=== PATIENT | female | born 1995 | race Caucasian/White ===

== ENCOUNTER 2023-03-13 06:22 | Observation (INO) | payer BC, SELFPAY ==
[2023-03-13 06:36] VITALS: BP 129/76; PULSE 93
--- NOTE | 2023-03-13 07:14 | US_ITS ---
[address] [address] Patient Name: REGINA DOWELL MRN: [id number] date: 1995 Sex: F Assigned Patient Location: [facility] Current Patient Location: [facility] Accession/Order Number: [id number] Exam Date: 03/13/2023 07:15 Report Date: 03/13/2023 08:24 At the request of: BRYAN GUAMAN Procedure: US OB placenta EXAMINATION: US OB placenta, US OB cervical length HISTORY: bleeding ; vaginal bleeding COMPARISON: No relevant comparison available. FINDINGS: PLACENTA: Posterior with lower margin 0.6 cm from internal os. 8 mm hypoechoic area within placenta suspected to represent a venous lainez. CERVIX LENGTH: 4.8 cm in length, closed. HEART RATE: 162 bpm AMNIOTIC FLUID: Subjectively normal. OTHER: None. GA: 26 weeks 5 days SLOANE: 06/14/2023 IMPRESSION: 1. Single live intrauterine . 2. Posterior placenta with marginal previa. No evidence of abruption or subchorionic hematoma. 3. Closed cervix 4.8 cm in length. Electronically authenticated by: GARRETT ROWAN Date: 03/13/2023 08:24
--- NOTE | 2023-03-13 07:14 | US_ITS ---
[address] [address] Patient Name: REGINA DOWELL MRN: [id number] date: 1995 Sex: F Assigned Patient Location: [facility] Current Patient Location: [facility] Accession/Order Number: [id number] Exam Date: 03/13/2023 07:15 Report Date: 03/13/2023 08:24 At the request of: BRYAN GUAMAN Procedure: US OB cervical length EXAMINATION: US OB placenta, US OB cervical length HISTORY: bleeding ; vaginal bleeding COMPARISON: No relevant comparison available. FINDINGS: PLACENTA: Posterior with lower margin 0.6 cm from internal os. 8 mm hypoechoic area within placenta suspected to represent a venous lainez. CERVIX LENGTH: 4.8 cm in length, closed. HEART RATE: 162 bpm AMNIOTIC FLUID: Subjectively normal. OTHER: None. GA: 26 weeks 5 days SLOANE: 06/14/2023 IMPRESSION: 1. Single live intrauterine . 2. Posterior placenta with marginal previa. No evidence of abruption or subchorionic hematoma. 3. Closed cervix 4.8 cm in length. Electronically authenticated by: GARRETT ROWAN Date: 03/13/2023 08:24
--- NOTE | 2023-03-13 07:23 | W.PC.ACHO ---
Registration Status: ADM ALEC Primary Language: Preferred Language:
[2023-03-13 07:44] LABS: Bilirubin Urine NEGATIVE (NEGATIVE); Blood Urine MODERATE (NEGATIVE); Clarity Urine CLEAR (CLEAR); Color Urine LT. YELLOW (YELLOW); Glucose Urine UA NEGATIVE (NEGATIVE); Ketones Urine NEGATIVE (NEGATIVE); Leukocyte Esterase Urine NEGATIVE (NEGATIVE); Nitrite Urine NEGATIVE (NEGATIVE); Protein Urine NEGATIVE (NEG/TRACE); Urobilinogen Urine 0.2 EU/dL (0.2-1.0)
[2023-03-13 07:46] LABS: Urine Microscopic Indicated YES
[2023-03-13 08:01] LABS: Bacteria Urine NONE SEEN #/HPF (NONE SEEN); Cast Seen? NONE SEEN #/LPF (NONE SEEN); Crystals Seen? None Seen #/HPF (None Seen); Mucus Urine TRACE (NONE SEEN); Squamous Epithelial Cell Urine FEW #/LPF (NONE/RARE); Urine Culture Indicated NO; WBC Urine NONE SEEN #/HPF (NONE SEEN)
[2023-03-13] MEDS: 0.9 % SODIUM CHLORIDE 1,000 ML 125 ML IV (09:17)
[2023-03-13 12:47] VITALS: BP 117/62; PULSE 81
== END 2023-03-13 13:31 | disposition home or self-care (01) ==
PROVIDERS: Admitting Provider Obstetrics & Gynecology; PCP Family Medicine; Visit Provider Obstetrics & Gynecology
DX: O46.92 Antepartum hemorrhage, unspecified, second trimester (principal); Z3A.26 26 weeks gestation of pregnancy
CPT/HCPCS: 59025; 76815; 76817; 81003; 81015; G0378; G0379

== ENCOUNTER 2023-05-17 07:09 | Inpatient (IN) | payer BC, SELFPAY ==
[2023-05-17] VITALS (47 sets, daily range): BP systolic 108–168; BP diastolic 57–99; PULSE 68–101; RESP 16; TEMP 36.4–36.8
[2023-05-17 07:43] LABS: Amnisure POSITIVE (NEGATIVE)
[2023-05-17 07:50] LABS: Bilirubin Urine NEGATIVE (NEGATIVE); Blood Urine SMALL (NEGATIVE); Clarity Urine CLEAR (CLEAR); Color Urine LT. YELLOW (YELLOW); Glucose Urine UA NEGATIVE (NEGATIVE); Ketones Urine NEGATIVE (NEGATIVE); Leukocyte Esterase Urine NEGATIVE (NEGATIVE); Nitrite Urine NEGATIVE (NEGATIVE); Protein Urine NEGATIVE (NEG/TRACE); Specific Gravity Urine 1.015 (1.005-1.025); Urobilinogen Urine 0.2 EU/dL (0.2-1.0); pH Urine 7.5 (5.0-9.0)
[2023-05-17 07:51] LABS: Urine Microscopic Indicated YES
[2023-05-17 07:56] LABS: Bacteria Urine TRACE #/HPF (NONE SEEN); Cast Seen? NONE SEEN #/LPF (NONE SEEN); Crystals Seen? None Seen #/HPF (None Seen); Mucus Urine NONE SEEN (NONE SEEN); RBC Urine 0-2 #/HPF (0-2); Squamous Epithelial Cell Urine RARE #/LPF (NONE/RARE); Urine Culture Indicated YES
[2023-05-17] MEDS: AMPICILLIN SODIUM 2,000 MG in 0.9 % SODIUM CHLORIDE 100 ML 200 MG IV (08:23)
[2023-05-17] MEDS: 0.9 % SODIUM CHLORIDE 1,000 ML 125 ML IV ×2 (08:27→10:51)
[2023-05-17 09:24] LABS: Hematocrit 34.7 % (36.0-48.0); Hemoglobin 11.8 g/dL (12.0-16.0); Mean Corpuscular Hemoglobin 28.8 pg (26.7-34.0); Mean Corpuscular Volume 84.6 fL (81.0-99.0); Mean Platelet Volume 10.7 fL (9.5-13.5); Platelet Count 247 10^3/uL (150-450); Red Cell Distribution Width 13.2 % (11.0-15.0); White Blood Count 19.6 10^3/uL (4.0-11.0)
[2023-05-17] MEDS: ROPIVACAINE HCL/PF 400 MG/200 ML PREMIX 6 MG EPIDURAL (10:49)
[2023-05-17] MEDS: FENTANYL CITRATE/PF 100 MCG/2 ML VIAL EPIDURAL (10:50)
[2023-05-17] MEDS: AMPICILLIN SODIUM 1,000 MG in 0.9 % SODIUM CHLORIDE 50 ML 100 MG IV (11:27)
[2023-05-17] MEDS: OXYTOCIN/0.9 % SODIUM CHLORIDE 10 UNITS/500 ML PLAST..BAG 6 UNIT IV (11:33)
[2023-05-17] MEDS: LABETALOL HCL 200 MG TABLET 300 MG PO (13:41)
--- NOTE | 2023-05-17 14:11 | P.OBHP_ITS ---
OB - H&P: HPI History of Present Illness Chief complaint: RUPTURED MEMBRANES : 2 Para: 1 Gestational age based on last menstrual period: 36.0 History of Present Dating criteria: LMP confirmed by 1st trimester US care: none Ultrasounds: normal 1st trimester US and normal mid trimester US complications: other (chronic hypertension ) complications comment: chronic HTN, Narrative: chronic hypertension Labs Blood type: O (+) positive Rubella: immune RPR/VDLR: nonreactive GBS status: unknown HBsAG: negative Review of Systems ROS Psychiatric Reports: anxiety PFSH PFS Medical History (Updated 05/17/23 @ 14:22 by LEONCIO LOZADA APRN, [place]) Surgical History (Updated 05/17/23 @ 07:38 by Willa Garcia, [place]) Social History (Updated 05/17/23 @ 13:52 by Willa Garcia, [place]) Within the past year, how often did you have a drink containing alcohol: never Score interpretation: A score less than 3 is consistent with normal alcohol consumption. Smoking status: Never smoker Non-prescribed substance use: denies use Meds Home Medications and Allergies Home Medications Medication Instructions Recorded Confirmed Type aspirin 81 mg capsule 81 mg PO DAILY 05/17/23 05/17/23 History diphenhydramine HCl 25 mg capsule 25 mg PO Q8H PRN sleep 05/17/23 05/17/23 History (Benadryl) docusate sodium 100 mg capsule 100 mg PO DAILY 05/17/23 05/17/23 History (Colace) labetalol 100 mg tablet 300 mg PO TID 05/17/23 05/17/23 History labetalol 200 mg tablet 200 mg PO .amhs 05/17/23 05/17/23 History [id number] 1 mg tab PO DAILY 05/17/23 History tablet Allergies Allergy/AdvReac Type Severity Reaction Status Date / Time acetaminophen [From Vicodin] Allergy Intermediate Vomiting Verified 03/13/23 09:28 hydrocodone [From Vicodin] Allergy Intermediate Vomiting Verified 03/13/23 09:28 ibuprofen AdvReac Mild gi upset Verified 05/17/23 07:40 Exam Constitutional Vital Signs, click to edit/add: Last Vital Signs Temp 98.3 F 05/17/23 13:17 Pulse 76 05/17/23 14:01 BP 133/83 05/17/23 14:01 Documenting provider has reviewed patient's vital signs: yes Common normals: no apparent distress General appearance: cooperative and comfortable Orientation/consciousness: Yes awake, Yes oriented to person, Yes oriented to place and Yes oriented to time Neck & C-Spine Common normals: full ROM Lymph Lymphatic: no lymphadenopathy noted Respiratory Common normals: normal respiratory effort and no retractions Effort & inspection: able to speak in complete sentences Auscultation: clear to auscultation bilaterally Cardio Common normals: regular rate, regular rhythm and no murmurs Rate: regular rate Rhythm: regular rhythm GI Common normals: non-tender Inspection: normal to inspection Auscultation: normoactive bowel sounds Palpation: soft Back & Pelvis Common normals: no CVA tenderness Thoracic spine/upper back: normal to inspection Extremity Common normals: normal to inspection and full ROM Neuro Common normals: oriented x3 Sensorium/orientation: awake, alert, oriented to person, oriented to place and oriented to time Psych Attitude: calm Activity/motor behavior: appropriate eye contact Results Labs Labs: Short CBC 05/17/23 Range/Units 08:10 WBC 19.6 H (4.0-11.0) 10^3/uL Hgb 11.8 L (12.0-16.0) g/dL Hct 34.7 L (36.0-48.0) % Plt Count 247 (150-450) 10^3/uL Urine 05/17/23 Range/Units 07:15 Urine Color Lt. yellow (YELLOW) Urine Clarity Clear (CLEAR) Urine pH 7.5 (5.0-9.0) Ur Specific [place] 1.015 (1.005-1.025) Urine Protein Negative (NEG/TRACE) mg/dL Urine Glucose (UA) Negative (NEGATIVE) mg/dL OB - A/P Assessment and Plan (1) Term :
--- NOTE | 2023-05-17 14:28 | PM.EN ---
Event Note Event Note: to patients room. She is rating her pain a 0. Epidural working well. SVE complete, thick meconium noted, without particulates. Will remove najera and prepare for delivery. Dr Aguirre notified
[2023-05-17] MEDS: CARBOPROST TROMETHAMINE 250 MCG/ML 1 ML VIAL IM (15:09)
--- NOTE | 2023-05-17 15:30 | P.OBPRC_ITS ---
Procedure Procedure: events: Labor < 37 Weeks, Labor Augmentation and Meconium S tained Fluid Induction method: none Delivery augmentation: pitocin Delivery monitor: external FHT and external uterine Route of delivery: Episiotomy Description: none Laceration description: labial (Small left labial repair) Delivery repair: Vicryl Estimated blood loss (mL): 450 Anesthesia type: Epidural Disposition: no change Infant Delivery date: 05/17/23 Gender: male presentation: vertex Placental delivery description: Spontaneous cord description: 3 Vessels heart rate - 1 minute: 100 bpm or Greater respiratory effort - 1 minute: Spontaneous/Strong Cry muscle tone - 1 minute: Minimal Flexion/Extension reflex response - 1 minute: Minimal Response color - 1 minute: Bluish Hands or Feet total score - 1 minute: 7 heart rate - 5 minute: 100 bpm or Greater respiratory effort - 5 minute: Spontaneous/Strong Cry muscle tone - 5 minute: Active Movement reflex response - 5 minute: Prompt Response color - 5 minute: Bluish Hands or Feet total score - 5 minute: 9
[2023-05-17] MEDS: IBUPROFEN 400 MG TABLET 800 MG PO (16:16)
[2023-05-17 16:25] LABS: Amphetamine Screen Urine NEGATIVE (NEGATIVE); Barbiturates Screen Urine NEGATIVE (NEGATIVE); Benzodiazepines Screen Urine NEGATIVE (NEGATIVE); Buprenorphine Screen Urine NEGATIVE (NEGATIVE); Cannabinoid Screen Urine NEGATIVE (NEGATIVE); Cocaine Screen Urine NEGATIVE (NEGATIVE); Methadone Screen Urine NEGATIVE (NEGATIVE); Methamphetamines Screen Urine NEGATIVE (NEGATIVE); Opiate Screen Urine NEGATIVE (NEGATIVE); Oxycodone Screen Urine NEGATIVE (NEGATIVE); Phencyclidine Screen Urine NEGATIVE (NEGATIVE); Tricyclic Antidepressant Urine NEGATIVE (NEGATIVE)
--- NOTE | 2023-05-17 21:39 | PC.NURSE ---
Reported BP's to Savi GAGE Orders recieved to skip this dose of labetalol.
[2023-05-18] VITALS (8 sets, daily range): BP systolic 121–148; BP diastolic 60–85; PULSE 82–111; RESP 16; TEMP 35.9–36.7
[2023-05-18] MEDS: IBUPROFEN 400 MG TABLET 800 MG PO ×3 (00:58→18:49)
[2023-05-18 06:24] LABS: Basophils Absolute Auto 0.1 10^3/uL (0.0-0.1); Basophils Percent Auto 0.2 % (0.2-2.0); Eosinophils Percent Auto 0.1 % (0.9-7.0); Hematocrit 29.6 % (36.0-48.0); Hemoglobin 9.8 g/dL (12.0-16.0); Immature Granulocytes Abs Auto 0.19 10^3/uL (0.00-0.03); Immature Granulocytes Pct Auto 0.9 % (0.0-0.5); Lymphocytes Absolute Auto 2.5 10^3/uL (1.2-3.8); Lymphocytes Percent Auto 11.5 % (20.5-60.0); Mean Corpuscular HGB Conc 33.1 g/dL (29.9-35.2); Mean Corpuscular Volume 87.6 fL (81.0-99.0); Monocytes Absolute Auto 1.2 10^3/uL (0.3-0.8); Monocytes Percent Auto 5.4 % (1.7-12.0); Neutrophils Absolute Auto 17.7 10^3/uL (1.4-6.5); Neutrophils Percent Auto 81.9 % (43.0-75.0); Platelet Count 221 10^3/uL (150-450); Red Blood Count 3.38 10^6/uL (4.20-5.40); Red Cell Distribution Width 13.3 % (11.0-15.0); White Blood Count 21.6 10^3/uL (4.0-11.0)
--- NOTE | 2023-05-18 07:22 | PC.NURSE ---
Report given to Kaitlyn Rojas RN.
[2023-05-18] MEDS: DOCUSATE SODIUM 100 MG CAPSULE PO (09:54)
[2023-05-18] MEDS: ACETAMINOPHEN 325 MG TABLET 650 MG PO ×2 (11:16→15:23)
--- NOTE | 2023-05-18 11:45 | P.OBPN_ITS ---
OB - PN: Subj Subjective Patient comments: no complaints, tolerating diet and flatus present status: doing well [place] feeding status: exclusively Exam Constitutional Vital Signs, click to edit/add: Last Vital Signs Temp 97.1 F L 05/18/23 01:10 Pulse 82 05/18/23 06:28 Resp 16 05/18/23 01:10 BP 121/60 05/18/23 06:28 Documenting provider has reviewed patient's vital signs: yes Common normals: no apparent distress, average body habitus, oriented x3 and no limitations General appearance: cooperative, comfortable, well kempt and well developed Orientation/consciousness: Yes awake, Yes oriented to person, Yes oriented to place, Yes oriented to time and Yes confused HENMT Common normals: normocephalic and head/scalp atraumatic Eye Common normals: PERRL Pupil: accommodation reflex normal Neck & C-Spine Common normals: full ROM Respiratory Common normals: normal respiratory effort Cardio Common normals: regular rate and regular rhythm GI Common normals: Normal to inspection, nondistended, normoactive bowel sounds present Common normals: no CVA tenderness Extremity Common normals: normal to inspection, full ROM and no calf tenderness Neuro Common normals: oriented x3, CN's II-XII intact bilaterally, moves all extremities, no focal motor deficits and no sensory deficits noted Psych Common normals: mental status grossly normal, thought process normal, cooperative, affect normal and speech normal Results Labs Labs: Short CBC 05/18/23 Range/Units 06:11 WBC 21.6 H (4.0-11.0) 10^3/uL Hgb 9.8 L (12.0-16.0) g/dL Hct 29.6 L (36.0-48.0) % Plt Count 221 (150-450) 10^3/uL OB - PN: A/P Assessment and Plan (1) Term : Assessment and Plan: post day one, chronic hypertension, will change med to nifedipine 30 mg extended release one PO QD Plan routine post care Plan - Vaginal Delivery day: 1 Plan: routine care Comment: breast feeding, milk not yet in Time Spent with Patient Time: Total time spent is greater than 50% in coordination of care (as documented) at patient's floor/unit and/or counseling patient: Total time spent with greater than 50% in coordination of care (as documented) at patient's floor/unit and/or counseling patient: less than 15 minutes
--- NOTE | 2023-05-18 14:46 | PC.NURSE ---
plan of care reivewed. verbalizes understanding. reports rubra wnl. denies pain or needs
--- NOTE | 2023-05-18 18:14 | PC.NURSE ---
pt appears comfortable inbed with warm pack. tylenol given as ordered and requested for comfort
[2023-05-18] MEDS: NIFEdipine 30 MG TAB.ER.24 PO (23:21)
== END 2023-05-18 23:40 | disposition home or self-care (01) | DRG 806 ==
PROVIDERS: Admitting Provider Midwife; PCP Family Medicine; Visit Provider Obstetrics & Gynecology
DX: O42.913 Preterm premature rupture of membranes, unspecified as to length of time between rupture and onset of labor, third trimester (principal); O10.92 Unspecified pre-existing hypertension complicating childbirth; Z37.0 Single live birth; Z3A.36 36 weeks gestation of pregnancy; O77.0 Labor and delivery complicated by meconium in amniotic fluid; O70.0 First degree perineal laceration during delivery; Z79.899 Other long term (current) drug therapy
CPT/HCPCS: 36415; 51702; 59050; 80307; 81001; 84112; 85025; 85027; 86850; 86900; 86901; 87086; 88307; 96365; 96372; 96375; 96376

== ENCOUNTER 2023-11-09 17:43 | Observation (INO) | payer BC, SELFPAY ==
[2023-11-09] VITALS (9 sets, daily range): BP systolic 128–157; BP diastolic 78–92; PULSE 122–138; RESP 15–29; TEMP 37.1–37.4; O2SAT 96–100; BMI 30.5; BMI 29.7
--- NOTE | 2023-11-09 18:03 | ED.GENADUL1 ---
HPI - General Adult General Chief complaint: Upper Respiratory Infection Stated complaint: female issues Time Seen by Provider: 11/09/23 17:53 Source: patient and family Mode of arrival: walk-in Limitations: no limitations Related Data Home Medications Medication Instructions Recorded Confirmed labetalol 100 mg tablet 200 mg PO Q12H 11/09/23 11/09/23 Allergies Allergy/AdvReac Type Severity Reaction Status Date / Time hydrocodone [From Vicodin] Allergy Intermediate Vomiting Verified 03/13/23 09:28 [facility] Medical History (Updated 11/09/23 @ 20:38 by ERIK Crowder) Anxiety ?F41.9 - Anxiety disorder, unspecified (ICD-10) Chronic hypertension ?I10 - Essential (primary) hypertension (ICD-10) Surgical History (Updated 05/17/23 @ 07:38 by Willa Garcia RN) H/O left knee surgery ?Z98.890 - Other specified postprocedural states (ICD-10) Social History (Updated 05/17/23 @ 13:52 by Willa Garcia RN) Within the past year, how often did you have a drink containing alcohol: never Score interpretation: A score less than 3 is consistent with normal alcohol consumption. Smoking status: Never smoker Non-prescribed substance use: denies use Exam Constitutional Vital Signs, click to edit/add: Last Vital Signs Temp 99.3 F 11/09/23 17:52 Pulse 136 H 11/09/23 19:31 Resp 29 H 11/09/23 19:31 BP 131/90 11/09/23 19:31 Pulse Ox 99 11/09/23 19:31 O2 Del Method Room Air 11/09/23 17:52 Course Vital Signs Vital signs: Vital Signs Temperature 99.3 F 11/09/23 17:52 Pulse Rate 134 H 11/09/23 17:52 Respiratory Rate 18 11/09/23 17:52 Blood Pressure 157/83 H 11/09/23 17:52 Pulse Oximetry 98 11/09/23 17:52 Oxygen Delivery Method Room Air 11/09/23 17:52 Temperature 99.3 F 11/09/23 17:52 Pulse Rate 136 H 11/09/23 19:31 Respiratory Rate 29 H 11/09/23 19:31 Blood Pressure 131/90 11/09/23 19:31 Pulse Oximetry 99 11/09/23 19:31 Oxygen Delivery Method Room Air 11/09/23 17:52 Medical Decision Making MDM Narrative Medical decision making narrative: Patient was treated with 2 L of IV fluids which initially improved her heart rate, but she began vomiting again. She was given IV Zofran, IV Compazine. Her quantitative hCG level is less than 1. She is not . She was offered Toradol for comfort, she declined this and did not want any pain medications in the ER. Her lab studies show leukocytosis, although the patient has a history of leukocytosis and today's level is actually improved from the last year. She has 3% bandemia, mild hyponatremia. Urine specimen shows urinary tract infection. Lactic acid is normal, procalcitonin is elevated. CT scanner is down, patient with no severe pain in the ER, renal ultrasound shows no evidence of hydronephrosis to suggest the patient has a septic kidney stone at this time. There was a small kidney stone noted in the left kidney, urinary bladder is thickened consistent with UTI and pyelonephritis. Patient was given IV Rocephin, blood cultures are pending. Patient was reevaluated by attending physician prior to admission. Case discussed with hospitalist service and the patient is admitted for pyelonephritis, sepsis, tachycardia. Blood pressure and oxygen saturation remained stable in the ER. She is negative for COVID and influenza. Medical Records Medical records reviewed: Yes I reviewed the patient's medical records Lab Data Lab results reviewed: Yes I reviewed the patient's lab results Labs: Lab Results 11/09/23 11/09/23 11/09/23 Range/Units 18:00 18:05 18:10 WBC 14.7 H (4.0-11.0) 10^3/uL RBC 4.32 (4.20-5.40) 10^6/uL Hgb 11.6 L (12.0-16.0) g/dL Hct 35.3 L (36.0-48.0) % MCV 81.7 (81.0-99.0) fL MCH 26.9 (26.7-34.0) pg MCHC 32.9 (29.9-35.2) g/dL RDW 14.0 (11.0-15.0) % Plt Count 199 (150-450) 10^3/uL MPV 9.7 (9.5-13.5) fL Seg Neuts % (Manual) 81.0 Band Neutrophils % 3.0 (0-5) % Lymphocytes % (Manual) 5.0 L (20.5-60.0) % Monocytes % (Manual) 11.0 (1.7-12.0) % Eosinophils % (Manual) 0.0 L (0.9-7.0) % Basophils % (Manual) 0.0 L (0.2-2.0) % Neutrophils # (Manual) 11.90 H (1.4-6.5) 10^3/uL Band Neutrophils # 0.4 H (0.0-0.3) 10^3/uL Lymphocytes # (Manual) 0.73 L (1.20-3.80) 10^3/uL Monocytes # (Manual) 1.61 H (0.30-0.80) 10^3/uL Eosinophils # (Manual) 0.00 (0.00-0.70) 10^3/uL Basophils # (Manual) 0.00 (0.00-0.10) 10^3/uL Anisocytosis 1+ Microcytosis 1+ Sodium 131 L (136-145) mmol/L Potassium 3.6 (3.5-5.1) mmol/L Chloride 95 L (98-107) mmol/L Carbon Dioxide 19.5 L (21.0-32.0) mmol/L Anion Gap 20.1 BUN 19.0 H (7.0-18.0) mg/dL Creatinine 1.24 H (0.55-1.02) mg/dL Est GFR ( Amer) >60 (>=60) Est GFR (Non-Af Amer) 52 L (>=60) BUN/Creatinine Ratio 15.3 Glucose 107 H (74-106) mg/dL Lactate (0.4-2.0) mmol/L Calcium 9.1 (8.5-10.1) mg/dL Total Bilirubin 0.9 (0.2-1.0) mg/dL AST 27 (15-37) U/L ALT 31 (14-59) U/L Alkaline Phosphatase 104 (46-116) U/L Total Protein 8.1 (6.4-8.2) g/dL Albumin 3.5 (3.4-5.0) g/dL Globulin 4.6 g/dL Albumin/Globulin Ratio 0.8 Procalcitonin (0.00-0.50) ng/mL HCG, Quant <1 mIU/mL Urine Color Lt. yellow (YELLOW) Urine Clarity Clear (CLEAR) Urine pH 5.5 (5.0-9.0) Ur Specific [place] 1.025 (1.005-1.025) Urine Protein 100 A (NEG/TRACE) mg/dL Urine Glucose (UA) Negative (NEGATIVE) mg/dL Urine Ketones >=80 A (NEGATIVE) mg/dL Urine Occult Blood Large A (NEGATIVE) Urine Nitrite Negative (NEGATIVE) Urine Bilirubin Negative (NEGATIVE) Urine Urobilinogen 1.0 (0.2-1.0) EU/dL Ur Leukocyte Esterase Moderate A (NEGATIVE) Urine RBC 20-50 A (0-2) #/HPF Urine WBC 10-20 A (NONE SEEN) #/HPF Ur Squamous Epith Cells Few A (NONE/RARE) #/LPF Urine Crystals None seen (None Seen) #/HPF Urine Bacteria Small A (NONE SEEN) #/HPF Urine Casts None seen (NONE SEEN) #/LPF Urine Mucus None seen (NONE SEEN) Ur Culture Indicated? Yes Influenza Type A Ag Negative Influenza Type B Ag Negative SARS-CoV-2 Ag (CV2AG) Negative (NEGATIVE) 11/09/23 11/09/23 Range/Units 18:52 18:59 WBC (4.0-11.0) 10^3/uL RBC (4.20-5.40) 10^6/uL Hgb (12.0-16.0) g/dL Hct (36.0-48.0) % MCV (81.0-99.0) fL MCH (26.7-34.0) pg MCHC (29.9-35.2) g/dL RDW (11.0-15.0) % Plt Count (150-450) 10^3/uL MPV (9.5-13.5) fL Seg Neuts % (Manual) Band Neutrophils % (0-5) % Lymphocytes % (Manual) (20.5-60.0) % Monocytes % (Manual) (1.7-12.0) % Eosinophils % (Manual) (0.9-7.0) % Basophils % (Manual) (0.2-2.0) % Neutrophils # (Manual) (1.4-6.5) 10^3/uL Band Neutrophils # (0.0-0.3) 10^3/uL Lymphocytes # (Manual) (1.20-3.80) 10^3/uL Monocytes # (Manual) (0.30-0.80) 10^3/uL Eosinophils # (Manual) (0.00-0.70) 10^3/uL Basophils # (Manual) (0.00-0.10) 10^3/uL Anisocytosis Microcytosis Sodium (136-145) mmol/L Potassium (3.5-5.1) mmol/L Chloride (98-107) mmol/L Carbon Dioxide (21.0-32.0) mmol/L Anion Gap BUN (7.0-18.0) mg/dL Creatinine (0.55-1.02) mg/dL Est GFR ( Amer) (>=60) Est GFR (Non-Af Amer) (>=60) BUN/Creatinine Ratio Glucose (74-106) mg/dL Lactate 0.9 (0.4-2.0) mmol/L Calcium (8.5-10.1) mg/dL Total Bilirubin (0.2-1.0) mg/dL AST (15-37) U/L ALT (14-59) U/L Alkaline Phosphatase (46-116) U/L Total Protein (6.4-8.2) g/dL Albumin (3.4-5.0) g/dL Globulin g/dL Albumin/Globulin Ratio Procalcitonin 2.61 H (0.00-0.50) ng/mL HCG, Quant mIU/mL Urine Color (YELLOW) Urine Clarity (CLEAR) Urine pH (5.0-9.0) Ur Specific [place] (1.005-1.025) Urine Protein (NEG/TRACE) mg/dL Urine Glucose (UA) (NEGATIVE) mg/dL Urine Ketones (NEGATIVE) mg/dL Urine Occult Blood (NEGATIVE) Urine Nitrite (NEGATIVE) Urine Bilirubin (NEGATIVE) Urine Urobilinogen (0.2-1.0) EU/dL Ur Leukocyte Esterase (NEGATIVE) Urine RBC (0-2) #/HPF Urine WBC (NONE SEEN) #/HPF Ur Squamous Epith Cells (NONE/RARE) #/LPF Urine Crystals (None Seen) #/HPF Urine Bacteria (NONE SEEN) #/HPF Urine Casts (NONE SEEN) #/LPF Urine Mucus (NONE SEEN) Ur Culture Indicated? Influenza Type A Ag Influenza Type B Ag SARS-CoV-2 Ag (CV2AG) (NEGATIVE) Imaging Data US renal: Attestation: I have reviewed the pertinent imaging results. Discharge Plan Discharge Chief Complaint: Upper Respiratory Infection Clinical Impression: Pyelonephritis, Tachycardia, Sepsis, Nausea and vomiting Patient Disposition: Admitted as Observation Time of Disposition Decision: 20:38
[2023-11-09] MEDS: 0.9 % SODIUM CHLORIDE 1,000 ML 1000 ML IV ×2 (18:05→19:06)
[2023-11-09 18:20] LABS: Hematocrit 35.3 % (36.0-48.0); Hemoglobin 11.6 g/dL (12.0-16.0); Mean Corpuscular HGB Conc 32.9 g/dL (29.9-35.2); Mean Corpuscular Hemoglobin 26.9 pg (26.7-34.0); Mean Corpuscular Volume 81.7 fL (81.0-99.0); Mean Platelet Volume 9.7 fL (9.5-13.5); Platelet Count 199 10^3/uL (150-450); Red Blood Count 4.32 10^6/uL (4.20-5.40); White Blood Count 14.7 10^3/uL (4.0-11.0)
[2023-11-09 18:21] LABS: Bilirubin Urine NEGATIVE (NEGATIVE); Blood Urine LARGE (NEGATIVE); Clarity Urine CLEAR (CLEAR); Color Urine LT. YELLOW (YELLOW); Glucose Urine UA NEGATIVE (NEGATIVE); Ketones Urine >=80 mg/dL (NEGATIVE); Leukocyte Esterase Urine MODERATE (NEGATIVE); Nitrite Urine NEGATIVE (NEGATIVE); Protein Urine 100 mg/dL (NEG/TRACE); Specific Gravity Urine 1.025 (1.005-1.025); pH Urine 5.5 (5.0-9.0)
[2023-11-09 18:25] LABS: Urine Microscopic Indicated YES
[2023-11-09 18:32] LABS: Influenza Virus A Antigen Negative; Influenza Virus B Antigen Negative; Internal Control Within Normal Limits; SARS-CoV-2 Ag NEGATIVE (NEGATIVE)
[2023-11-09 18:35] LABS: Bacteria Urine SMALL #/HPF (NONE SEEN); Cast Seen? NONE SEEN #/LPF (NONE SEEN); Crystals Seen? None Seen #/HPF (None Seen); Mucus Urine NONE SEEN (NONE SEEN); RBC Urine 20-50 #/HPF (0-2); Squamous Epithelial Cell Urine FEW #/LPF (NONE/RARE); Urine Culture Indicated YES
[2023-11-09 18:41] LABS: Alanine Aminotransferase 31 U/L (14-59); Albumin Globulin Ratio 0.8; Albumin Level 3.5 g/dL (3.4-5.0); Alkaline Phosphatase 104 U/L (46-116); Anion Gap 20.1; Aspartate Amino Transferase 27 U/L (15-37); BUN Creatinine Ratio 15.3; Bilirubin Total 0.9 mg/dL (0.2-1.0); Calcium 9.1 mg/dL (8.5-10.1); Carbon Dioxide 19.5 mmol/L (21.0-32.0); Chloride 95 mmol/L (98-107); Estimated GFR (African America >60 (>=60); Estimated GFR (Non-African Ame 52 (>=60); Globulin 4.6 g/dL; Glucose 107 mg/dL (74-106); Potassium 3.6 mmol/L (3.5-5.1); Sodium 131 mmol/L (136-145); Total Protein 8.1 g/dL (6.4-8.2)
[2023-11-09 18:47] LABS: Anisocytosis 1+; Band Neutrophils Absolute 0.4 10^3/uL (0.0-0.3); HCG Quantitative <1 mIU/mL; Lymphocytes Absolute Manual 0.73 10^3/uL (1.20-3.80); Microcytosis 1+; Monocytes Absolute Manual 1.61 10^3/uL (0.30-0.80)
--- NOTE | 2023-11-09 18:54 | US_ITS ---
[address] [address] Patient Name: REGINA DOWELL MRN: [id number] date: 1995 Sex: F Assigned Patient Location: ER Current Patient Location: [facility] Accession/Order Number: [id number] Exam Date: 11/09/2023 19:50 Report Date: 11/09/2023 20:47 At the request of: ZAC ESTEVEZ Procedure: US renal BI EXAMINATION: US renal BI TECHNIQUE: Ultrasound of the kidneys was performed Grayscale and color flow Doppler imaging. HISTORY: UTI, flank pain. COMPARISON: None. FINDINGS: Kidneys: Couple small echogenic foci are seen of the midpole left kidney measuring up to 5 mm. No renal mass lesion. No hydronephrosis of either kidney. The right kidney measures 13.9 x 5.6 x 3.9cm. The left kidney measures 11.6 x 5.0 x 6.0cm. Urinary bladder: The urinary bladder is unremarkable. Other: No additional abnormality. US/US renal BI IMPRESSION: No evidence for hydronephrosis. Small probable nonobstructing stones of left kidney. Electronically authenticated by: AMILCAR ROBERTS Date: 11/09/2023 20:47
[2023-11-09] MEDS: CEFTRIAXONE 2,000 MG in 0.9 % SODIUM CHLORIDE 100 ML 200 MG IV (19:06)
[2023-11-09] MEDS: ONDANSETRON PF 4 MG/2 ML VIAL IV (19:21)
[2023-11-09 19:23] LABS: Lactate/Lactic Acid 0.9 mmol/L (0.4-2.0)
[2023-11-09 20:14] LABS: PROCALCITONIN 2.61 ng/mL (0.00-0.50)
[2023-11-09] MEDS: PROCHLORPERAZINE 10 MG/2 ML VIAL 5 MG IV (20:26)
--- NOTE | 2023-11-09 20:42 | ECG_ITS ---
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
[2023-11-09] MEDS: 0.9 % SODIUM CHLORIDE 1,000 ML 126 ML IV (22:29)
[2023-11-10] VITALS (11 sets, daily range): BP systolic 132–144; BP diastolic 78; PULSE 97–135; RESP 16–18; TEMP 36.7–39.5; O2SAT 97–98
[2023-11-10] MEDS: PROCHLORPERAZINE 10 MG/2 ML VIAL IV (03:04)
[2023-11-10] MEDS: ACETAMINOPHEN 325 MG TABLET 650 MG PO (03:09)
--- NOTE | 2023-11-10 03:13 | PC.NURSE ---
pt complaints of shivers and nausea. Vitals obtained, HR elevated and temp of 103.1. Compazine and tylenol given per physician's order.
[2023-11-10 04:58] LABS: Basophils Percent Auto 0.2 % (0.2-2.0); Hematocrit 29.3 % (36.0-48.0); Hemoglobin 9.5 g/dL (12.0-16.0); Immature Granulocytes Abs Auto 0.07 10^3/uL (0.00-0.03); Immature Granulocytes Pct Auto 0.6 % (0.0-0.5); Lymphocytes Percent Auto 8.6 % (20.5-60.0); Mean Corpuscular HGB Conc 32.4 g/dL (29.9-35.2); Mean Corpuscular Hemoglobin 26.7 pg (26.7-34.0); Mean Corpuscular Volume 82.3 fL (81.0-99.0); Mean Platelet Volume 10.1 fL (9.5-13.5); Monocytes Absolute Auto 1.6 10^3/uL (0.3-0.8); Monocytes Percent Auto 14.6 % (1.7-12.0); Neutrophils Absolute Auto 8.5 10^3/uL (1.4-6.5); Platelet Count 165 10^3/uL (150-450); Red Blood Count 3.56 10^6/uL (4.20-5.40); Red Cell Distribution Width 14.2 % (11.0-15.0); White Blood Count 11.2 10^3/uL (4.0-11.0)
[2023-11-10 05:19] LABS: Alanine Aminotransferase 21 U/L (14-59); Albumin Globulin Ratio 0.7; Albumin Level 2.7 g/dL (3.4-5.0); Alkaline Phosphatase 84 U/L (46-116); Anion Gap 16.5; Aspartate Amino Transferase 22 U/L (15-37); BUN Creatinine Ratio 13.6; Bilirubin Total 0.5 mg/dL (0.2-1.0); Calcium 8.4 mg/dL (8.5-10.1); Carbon Dioxide 16.6 mmol/L (21.0-32.0); Chloride 102 mmol/L (98-107); Estimated GFR (African America >60 (>=60); Estimated GFR (Non-African Ame >60 (>=60); Globulin 3.9 g/dL; Glucose 112 mg/dL (74-106); Potassium 3.1 mmol/L (3.5-5.1); Sodium 132 mmol/L (136-145); Total Protein 6.6 g/dL (6.4-8.2)
[2023-11-10] MEDS: 0.9 % SODIUM CHLORIDE 1,000 ML 126 ML IV (06:22)
--- NOTE | 2023-11-10 09:12 | P.HP_ITS ---
<Statement entered by Iggy Anguiano MD - 11/10/23 12:59> This documentation has been reviewed and approved. Patient is evaluated at the bedside, patient at that point in time is much improved. On my exam she had no CVA tenderness sinus tach that may have changed throughout the day. Agree with input and findings provided by nurse practitioner. HPI H&P: HPI History of Present Illness Chief complaint: SEPSIS,TACHYCARDIA, PYELONEPHRITIS Narrative: 11/10/23 [id number] This is a 28-year-old female patient with a relatively benign past medical history except for hypertension and she is 6 months ; who presents to the ED complaining of a 5-day course of illness with back pain, fevers and chills, weakness, and nausea and vomiting. The patient denies dysuria or frequency but did note a slight foul odor to her urine. As her weakness and vomiting persisted making it difficult for her to care for her infant, she presented to the ED for further evaluation. Workup in the ED revealed tachycardia (134), fever (99.3, 103.1), leukocytosis (14.7), mild hyponatremia (131), NAGI (BUN 19, CR 1.24, GFR 52), and elevated procalcitonin (2.61). A UA was positive for UTI. Renal US was obtained and which revealed small probable nonobstructing stones of the left kidney, no hydronephrosis or other acute abnormality. Lactic acid was within normal limits, and influenza and COVID swabs were negative. The patient was admitted to the hospitalist service last night for sepsis, pyelonephritis, and NAGI. At the time of my exam this morning the patient is walking back from the bathroom. She reports feeling significantly improved and is asking to go home so that she may continue nursing her baby. She denies dizziness, chest pain, or N/V. Her tachycardia has nearly resolved. Her NAGI is resolved on a.m. labs as is mild hyponatremia. She has mild hypokalemia that will be repleted today. She also has mild anemia, likely d/t hemodilution after large volume IVF administration last night. Despite sepsis and pyelonephritis, the patient has improved remarkably quickly, much faster than expected, and is stable for discharge home. Discharge: The pt is being discharged home in stable condition. She is prescribed Bactrim DS x 7 days for pyelonephritis, which is safe for a mother. She should follow up with her PCP in 3-5 days. She has been advised to return to the ED if she has recurrent fevers or nausea and vomiting. Opioid HPI Opioid Management Most Recent Opioid Data: Last Pain Assessment 11/10/23 09:38 Last MAR Pain Assessment 11/10/23 05:36 Last ORT Total Score 1 11/09/23 21:57 Last ORT Risk Category Low Risk 11/09/23 21:57 Ur Phencyclidine Scrn Negative (NEGATIVE) 05/17/23 07:15 Review of Systems ROS Status of ROS 10 or more systems reviewed and unremark able except as noted in history and below [facility] Medical History (Updated 11/10/23 @ 09:39 by Dee Dee Weiss NP) Term ?Z34.90 - Encounter for supervision of normal , unspecified, unspecified trimester (ICD-10) Kidney stone ?N20.0 - Calculus of kidney (ICD-10) Anxiety ?F41.9 - Anxiety disorder, unspecified (ICD-10) Chronic hypertension ?I10 - Essential (primary) hypertension (ICD-10) Surgical History (Updated 05/17/23 @ 07:38 by Willa Garcia RN) H/O left knee surgery ?Z98.890 - Other specified postprocedural states (ICD-10) Family History (Updated 11/09/23 @ 21:58 by Cony Guy RN) Mother Family history of diabetes mellitus Family history of hypertension Other Family history of COPD (chronic obstructive pulmonary disease) Family history of myocardial infarction Social History (Updated 11/09/23 @ 21:59 by Cony Guy RN) Within the past year, how often did you have a drink containing alcohol: never Score interpretation: A score less than 3 is consistent with normal alcohol consumption. Smoking status: Never smoker Non-prescribed substance use: denies use Highest level of school completed/degree received: some college, no degree Feel stressed/tense/nervous/anxious/difficulty sleeping: rather much Meds Home Medications and Allergies Home Medications Medication Instructions Recorded Confirmed Type diphenhydramine HCl 25 mg capsule 25 mg PO .nightly PRN sleep 11/09/23 11/09/23 History (Benadryl) labetalol 100 mg tablet 200 mg PO Q12H 11/09/23 11/09/23 History cefdinir 300 mg capsule 300 mg PO BID 7 days #14 caps 11/10/23 Rx Allergies Allergy/AdvReac Type Severity Reaction Status Date / Time hydrocodone [From Vicodin] Allergy Intermediate Vomiting Verified 03/13/23 09:28 Exam Constitutional Vital Signs, click to edit/add: Last Vital Signs Temp 98.0 F 11/10/23 07:54 Pulse 106 H 11/10/23 07:54 Resp 16 11/10/23 07:55 BP 132/78 11/10/23 07:54 Pulse Ox 97 11/10/23 07:54 O2 Del Method Room Air 11/10/23 07:54 Common normals: no apparent distress, oriented x3, alert and well nourished General appearance: cooperative Orientation/consciousness: Yes awake HENMT Common normals: normocephalic, head/scalp atraumatic, hearing grossly normal bilaterally, external nose normal and moist oral mucous membranes Eye Common normals: PERRL, EOMs intact bilaterally, conjunctivae normal and no scleral icterus Alignment: alignment normal Eyelid: eyelids normal Neck & C-Spine Common normals: full ROM, supple and no JVD Chest Common normals: inspection of chest normal Chest: symmetrical chest wall rise Respiratory Common normals: normal respiratory effort, no retractions, no use of accessory muscles and clear to auscultation bilaterally Effort & inspection: able to speak in complete sentences Cardio Common normals: no JVD, regular rhythm, S1 normal heart sound, S2 normal heart sound, no gallops, no clicks, no murmurs, no rub and peripheral pulses 2+ throughout Rate: tachycardic (Mild (100-105)) GI Common normals: Normal to inspection, nondistended, normoactive bowel sounds present, soft to palpation, non-tender, no hepatosplenomegaly, no masses and no bruits Bladder/kidney exam: bladder normal to palpation Back & Pelvis Common normals: thoracic and lumbar spine normal to inspection General back: CVA tenderness CVA tenderness: left (Very mild) Extremity Common normals: normal capillary refill and no pedal edema General: normal exam except as noted; no clubbing and no cyanosis Neuro Wayne Coma Scale: GCS not evaluated Common normals: CN's II-XII intact bilaterally, moves all extremities, no focal motor deficits and no sensory deficits noted Speech: speech normal Motor exam: strength 5/5 throughout Psych Common normals: mental status grossly normal, thought process normal, affect normal and activity/motor behavior normal Results Labs Labs: Short CBC 11/09/23 11/10/23 Range/Units 18:05 04:29 WBC 14.7 H 11.2 H (4.0-11.0) 10^3/uL Hgb 11.6 L 9.5 L (12.0-16.0) g/dL Hct 35.3 L 29.3 L (36.0-48.0) % Plt Count 199 165 (150-450) 10^3/uL BMP 11/09/23 11/10/23 18:05 04:29 Sodium 131 L 132 L Potassium 3.6 3.1 L Chloride 95 L 102 Carbon Dioxide 19.5 L 16.6 L BUN 19.0 H 11.0 Creatinine 1.24 H 0.81 Glucose 107 H 112 H Calcium 9.1 8.4 L Liver Function 11/09/23 11/10/23 Range/Units 18:05 04:29 Total Bilirubin 0.9 0.5 (0.2-1.0) mg/dL AST 27 22 (15-37) U/L ALT 31 21 (14-59) U/L Alkaline Phosphatase 104 84 (46-116) U/L Albumin 3.5 2.7 L (3.4-5.0) g/dL Urine 11/09/23 Range/Units 18:10 Urine Color Lt. yellow (YELLOW) Urine Clarity Clear (CLEAR) Urine pH 5.5 (5.0-9.0) Ur Specific [place] 1.025 (1.005-1.025) Urine Protein 100 A (NEG/TRACE) mg/dL Urine Glucose (UA) Negative (NEGATIVE) mg/dL Pulse Oximetry Attestation: I have reviewed the pertinent pulse oximetry results. Imaging Renal US: Attestation: I have reviewed the pertinent imaging results. Radiologist's impression: IMPRESSION: No evidence for hydronephrosis. Small probable nonobstructing stones of left kidney. Assessment and Plan Assessment and Plan (1) Sepsis: Assessment and Plan: Acute * Initially adm inpatient on 11/09/23 * Pt is not toxic and is appropriate for observation status - change to obs admission * AEB on admission: * WBC 14,700, Fever 103.1, HR 134, RR 29, PCT 2.61, Source - UTI/Pyelonephritis * 2L IVF boluses given in ED * Maintenance IVF w/ NS at 125/hr given overnight * BC x 2 drawn in ED - pending * See Pyelonephritis for ABX * Repeat labs/vitals today - no further fever, tachycardia nearly resolved (106), BP stable, WBC down (11,200), NAGI resolved (BUN 11, Cr 0.87, GFR >60) * Pt improved quickly, stable for discharge Qualifiers: Acute renal failure type: unspecified Sepsis acute organ dysfunction status: with acute organ dysfunction Sepsis type: sepsis due to unspecified organism Severe sepsis acute organ dysfunction type: acute renal failure Severe sepsis shock status: without septic shock Qualified Code(s): A41.9 - Sepsis, unspecified organism; R65.20 - Severe sepsis without septic shock; N17.9 - Acute kidney failure, unspecified (2) Pyelonephritis: Assessment and Plan: Acute * IVPB Rocephin 2gm given in ED * IVPB Rocephin 1gm ordered daily starting today - give one dose * D/C on Bactrim DS x 7 days - Safe for (3) Hypokalemia: Assessment and Plan: Acute * Mild, K+ 3.4 * Likely d/t hemodilution * Give 40 mEq KCL PO now (4) Anemia: Assessment and Plan: Acute * Acute on chronic in a /post- mother * Likely worsened d/t hemodilution w/ high volume IVFs overnight * Asymptomatic - recommend outpatient monitoring (5) Chronic hypertension: Assessment and Plan: Chronic * BP currently well controlled * Continue home labetolol at d/c
--- NOTE | 2023-11-10 09:37 | CM.NOTE ---
Rounds made with Dr. Anguiano. Labs reviewed with Juan. Awaiting further plan of care once seen by STEPHON Funez.
[2023-11-10] MEDS: POTASSIUM CHLORIDE 10 MEQ ER TABLET 40 MEQ PO (09:39)
[2023-11-10] MEDS: CEFTRIAXONE 1,000 MG in 0.9 % SODIUM CHLORIDE 50 ML 100 MG IV (10:24)
--- OUTSIDE RECORDS SUMMARY | 2023-11-10 11:52 | XMS_ITS | CCD ---
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 Unavailable Unavailable Boyd, Adi R. Unavailable Unavailable Boyd, Adi R. Unavailable Unavailable FOORSOVJUAN CARLOS Unavailable Unavailable KUNS, MIKE R Unavailable Unavailable KUNS, MIKE R Unavailable Unavailable FURLONG, AMILCAR G Unavailable Unavailable ZIEBER, JOSE R Unavailable Unavailable KUNS, MIKE R Unavailable Unavailable BOYD, ADI Unavailable Unavailable BOYD, ADI Unavailable Unavailable FURLONG, AMILCAR G Unavailable Unavailable BOYD, ADI Unavailable Unavailable ZIEBER, JOSE R Unavailable Unavailable WARDLARS Unavailable Unavailable BOYD, ADI Unavailable Unavailable BOYD, ADI Unavailable Unavailable FURLONG, AMILCAR G Unavailable Unavailable BOYD, ADI Unavailable Unavailable GENA CALABRESE V Unavailable Unavailable POTDEJUAN PRAJAPATI Unavailable Unavailable HEYDI HICKMAN Unavailable Unavailable ANNALISE WHITLOCK Unavailable Unavailable TRAY RAMÍREZ Unavailable Unavailable LEONCIO LOZADA Attending Unavailable LEONCIO LOZADA Attending Unavailable LEONCIO LOZADA Attending Unavailable Allergies Allergy Classification Reported Allergen(s) Allergy Type Date of Onset Reaction(s) Facility (1 source) acetaminophen / HYDROcodone; Translations: [HYDROCODONE-ACET AMINOPHEN] Drug Allergy AOF [facility] Repository (1 source) NO KNOWN ALLERGIES; Translations: [NO KNOWN ALLERGIES] Propensity to adverse reactions to drug (disorder) [facility] Repository (2 sources) acetaminophen / HYDROcodone; Translations: [Vicodin] Drug Allergy 4 AOF [facility] Repository Problems Active Problems Problem Classification Problem Date Documented Date Episodic/Chronic Anxiety disorders (1 source) Anxiety disorder, unspecified; Translations: [ANXIETY DISORDER UNSPECIFIED] Onset: 04-20-2017 Chronic Asthma (1 source) Unspecified asthma, uncomplicated; Translations: [UNSPECIFIED ASTHMA UNCOMPLICATED] Onset: 04-20-2017 Chronic Attention-deficit, conduct, and disruptive behavior disorders (1 source) Attention-deficit hyperactivity disorder, unspecified type; Translations: [ADHD UNSPECIFIED TYPE] Onset: 04-20-2017 Chronic Mood disorders (1 source) Major depressive disorder, single episode, unspecified; Translations: [AYUSH DEPRESS D/O SINGLE EPIS UNS] Onset: 04-20-2017 Rheumatoid arthritis and related disease (2 sources) Juvenile rheumatoid polyarthritis (seronegative); Translations: [Rheumatoid arthritis, unspecified] Onset: 09-29-2010 Chronic Unclassified (1 source) Unknown / UNK(Unknown) Onset: 03-13-2017 Past or Other Problems Problem Classification Problem Date Documented Date Episodic/Chronic Calculus of urinary tract (2 sources) Calculus of kidney; Translations: [Personal history of urinary calculi] Onset: 04-18-2017 Episodic Deficiency and other anemia (1 source) Anemia, unspecified; Translations: [ANEMIA UNSPECIFIED] Onset: 04-18-2017 Episodic Medical examination/evaluatio n (9 sources) Encounter for other preprocedural examination; Translations: [Encounter for preprocedural laboratory examination] Onset: 04-10-2017 Episodic Other diseases of kidney and ureters (5 sources) Hydronephrosis with renal and ureteral calculous obstruction; Translations: [HYDRONPHROS RENL AND URETRL CALCUL OBST] Onset: 04-13-2017 Episodic Results Test Name Value Interpretation Reference Range Facility Glucose Tolerance Test 3 Gautam trevizo 10-14-2021 FGLU 79 mg/dL Normal 65-99 [facility] K 9 Handler/ Deputy Comment on above: Result Comment: Acco rding to ADA: Fasting Glucoe Normal 65-99 mg/dl Prediabetes 100-125 mg/dl Diabetes >/= 126 Performed By: #### G TT3H #### [facility] [address] [place], [place] [id number] GLU1H 136 mg/dL Normal [facility] Specialist Comment on above: Performed By: #### G TT3H #### [facility] [address] [place], [place] [id number] GLU2H 130 mg/dL Normal [facility] Specialist Comment on above: Performed By: #### G TT3H #### [facility] [address] [place], [place] [id number] GLU3H 114 mg/dL Normal [facility] Specialist Comment on above: Performed By: #### G TT3H #### [facility] [address] [place], [place] [id number] Complete Blood Counton 10-01 Erythrocyte distribution width (RBC) [Ratio] 12.9 % Normal 11.0-15.0 [facility] Specialist Comment on above: Performed By: #### LUCIANO ZAMORA #### [facility] [address] [place], [place] [id number] Hematocrit (Bld) [Volume fraction] 32.5 % Low 35.0-47.0 [facility] Specialist Comment on above: Performed By: #### LUCIANO ZAMORA #### [facility] [address] [place], [place] [id number] Hemoglobin (Bld) [Mass/Vol] 10.8 g/dL Low 11.6-15.5 [facility] Specialist Comment on above: Performed By: #### LUCIANO ZAMORA #### [facility] [address] [place], [place] [id number] MCH (RBC) [Entitic mass] 29.3 pg Normal 27.0-33.0 [facility] Specialist Comment on above: Performed By: #### LUCIANO ZAMORA #### [facility] [address] [place], [place] [id number] MCHC (RBC) [Mass/Vol] 33.2 g/dL Normal 32.0-36.0 [facility] Specialist Comment on above: Performed By: #### LUCIANO ZAMORA #### [facility] [address] [place], [place] [id number] MCV (RBC) [Entitic vol] 88 fL Normal 80-100 [facility] Specialist Comment on above: Performed By: #### LUCIANO ZAMORA #### [facility] [address] [place], [place] [id number] Platelet mean volume (Bld) [Entitic vol] 10.00 fL Normal 7.50-12.50 [facility] Comment on above: Performed By: #### Amina WOODALL GGKRISTEN #### [facility] [address] [place], [place] [id number] Platelets (Bld) [#/Vol] 254 10*3/uL Normal 140-400 [facility] Comment on above: Performed By: #### Amina WOODALL GGLU #### [facility] [address] [place], [place] [id number] RBC (Bld) [#/Vol] 3.69 10*6/uL Low 3.90-5.20 [facility] Comment on above: Performed By: #### Amina WOODALL GGKRISTEN #### [facility] [address] [place], [place] [id number] RDW-SD 41.8 fL Normal 37.0-50.0 [facility] Comment on above: Performed By: #### Amina WOODALL GGLU #### [facility] [address] [place], [place] [id number] WBC (Bld) [#/Vol] 15.2 10*3/uL High 3.8-11.0 [facility] Comment on above: Performed By: #### Amina WOODALL GGLU #### [facility] [address] [place], [place] [id number] Glucose - Gestational Screen on 10-01-2021 Glucose [Mass/Vol] 156 mg/dL High <135 [facility] Comment on above: Result Comment: A va lue of 135 mg/dL or greater indicates the need for a full glucose tolerance test performed in the fasting state to determine if the patient has gestational diabetes. Performed By: #### Amina WOODALL GGLU #### [facility] [address] [place], [place] [id number] THINPREP TIS PAP REFLEX HPV mRNA E6/E7on 03-24-2020 CLINICAL INFORMATION: Normal [facility] Comment on above: Result Comment: None given Performed By: #### 9 0934 #### [facility]-[address] [place] [address] Pricing Coordinator: Storm Jimenez MD COMMENT Normal [facility] Comment on above: Result Comment: EXPL ANATORY NOTE: The Pap is a screening test for cervical cancer. It is not a diagnostic test and is subject to false negative and false positive results. It is most reliable when a satisfactory sample, regularly obtained, is submitted with relevant clinical findings and history, and when the Pap result is evaluated along with historic and current clinical information. NO COLLECTION DATE RECEIVED. WE HAVE USED THE DATE THE SPECIMEN WAS RECEIVED BY THIS LABORATORY THE COLLECTION DATE. IF THIS IS INCORRECT, PLEASE CONTACT CLIENT SERVICES. PHONE NUMBER: [phone] Performed By: #### 9 0934 #### [facility]-[address], [address] [place] [address] Pricing Coordinator: Storm Jimenez MD COMMENT: Normal [facility] Comment on above: Result Comment: This Pap test has been evaluated with computer assisted technology. Performed By: #### 9 0934 #### [facility]-[address], [address] [place] [address] Pricing Coordinator: Storm Jimenez MD SWITCHBOARD OPERATOR: Normal [facility] Comment on above: Result Comment: BGG, SCT(ASCP) CT screening location: [place] [address]. Performed By: #### 9 0934 #### [facility]-[address], [address] [place] [address] Pricing Coordinator: Storm Jimenez MD INTERPRETATION/RESU LT: Normal [facility] Comment on above: Result Comment: Nega tive for intraepithelial lesion or malignancy. Performed By: #### 9 0934 #### [facility]-[address], [address] [place], [place] [phone] Pricing Coordinator: Storm Jimenez MD LMP: Normal [facility] Comment on above: Result Comment: None given Performed By: #### 9 0934 #### [facility]-[address], [address] [place] [address] Pricing Coordinator: Storm Jimenez MD PREV. BX: None given Normal [facility] Comment on above: Performed By: #### 9 0934 #### [facility]-[address], [address] [place], [place] [id number] Pricing Coordinator: Storm Jimenez MD PREV. PAP: Normal [facility] Comment on above: Result Comment: None given Performed By: #### 9 0934 #### [facility]-[address], [address] [place], [place] [id number] Pricing Coordinator: Storm Jimenez MD SOURCE: Normal [facility] Comment on above: Result Comment: None given Performed By: #### 9 0934 #### [facility]-[address], [address] [place], [place] [phone] Pricing Coordinator: Storm Jimenez MD STATEMENT OF ADEQUACY: Normal [facility] Comment on above: Result Comment: Sati sfactory for evaluation. Endocervical/transformation zone component absent. Performed By: #### 9 0934 #### [facility]-[address], [address] [place] [address] Pricing Coordinator: Storm Jimenez MD Lois 09-06-2017 Alanine aminotransferase (ALT) 11 U/L Normal 7-38 [facility] Comment on above: Performed By: #### C BC, ALT, AST, RFP ####[facility] [place], [place] [phone] Mary 09-06-2017 Aspartate aminotransferase (AST) 16 U/L Normal 13-35 [facility] Comment on above: Performed By: #### C BC, ALT, AST, RFP ####[facility] [address] [place], [place] [phone] CBCon 09-06-2017 Erythrocyte distribution width Auto Ratio (RBC) 12.7 % Normal 11.5-15.0 [facility] Comment on above: Performed By: #### C BC, ALT, AST, RFP ####[facility] [place], [place] [phone] Erythrocytes (RBC) 4.33 10*6/uL Normal 3.90-5.20 [facility] Comment on above: Performed By: #### C BC, ALT, AST, RFP ####[place] [address] [place] [phone] Erythrocytes (RBC) 10*6/uL Normal <0.01 [facility] Comment on above: Performed By: #### C BC, ALT, AST, RFP ####[place] [address] [place] [phone] Hematocrit (HCT) 38.0 % Normal 36.0-46.0 [facility] Comment on above: Performed By: #### C BC, ALT, AST, RFP ####[place] [address] [place] [phone] Hemoglobin mass conc (Bld) 12.9 g/dL Normal 11.5-15.5 [facility] Comment on above: Performed By: #### C BC, ALT, AST, RFP ####[place] [address] [place] [phone] MCH 29.8 pG Normal 26.0-34.0 [facility] Comment on above: Performed By: #### C BC, ALT, AST, RFP ####[place] [address] [place] [phone] MCHC mass conc (RBC) 33.9 g/dL Normal 30.5-36.0 [facility] Comment on above: Performed By: #### C BC, ALT, AST, RFP ####[place] [address] [place] [phone] MCV 87.8 fL Normal 80.0-100.0 [facility] Comment on above: Performed By: #### C BC, ALT, AST, RFP ####[place] [address] [address] [place] [phone] Platelet mean volume (PMV) 10.0 fL Normal 9.0-12.7 [facility] Comment on above: Performed By: #### C BC, ALT, AST, RFP ####[facility] [address], [place] [phone] Platelets 332 10*3/uL Normal 150-400 [facility] Comment on above: Performed By: #### C BC, ALT, AST, RFP ####[facility] [address], [place] [phone] WBC (Leukocytes) 6.98 10*3/uL Normal 3.70-11.00 [facility] Comment on above: Performed By: #### C BC, ALT, AST, RFP ####[facility] [address], [place] [phone] CNOVon 09-06-2017 CNOV Office Visit (BILL) JUAN CAMPBELL ([id number]) 1995 [facility] Time Provider Department09/06/17 10:00 AM HALEIGH FONSECA During your visit today, we recorded the following information about you: Pulse Blood pressure Weight Height 92/minute 116/77 57.4 kg 1.69 Sharon Fonseca MD 09/06/2017 11:25 AM Arielle Campbell is a 21 year old female who presents for follow up:RHEUM LABSPREVIOUS DIAG JIAINTERVAL HISTORY Since lst visit,stable, no major flares sincs last visit.Started MTX qwkly and feels it is helping.Today no joint pain or stiffnessNo complaints todayNo rash, ulcers, fevers, swollen lymph nodes, DVT/PE, raynauds, sicca symptoms,trouble swallowing, back pain, red eyes, Chron's/UC or Psoriasis.MEDS/THERAPIES TRIED:Started on methotrexate 2009. Later Enbrel prescribed in March 2010. Bothstopped in 2013 as patient was in remissionUltram and motrin the past year?MTX restarted in 2017Ultram mariannenMotrijyotsna Morris OF SYSTEMSREVIEW OF SYSTEMS: March 13, 2017CONSTITUTIONAL:Fever: NoFatigue: NoPain: NoEYES:Pain: NoRedness: NoLoss of vision: NoDryness: NoEAR, NOSE, MOUTH, THROAT:Nose bleeds: NoHearing loss: NoSores in mouth: NoSwallowing problems: NoDry mouth: NoCARDIOVASCULAR:Chest pain: NoSwelling in the feet or legs: NoRESPIRATORY:Shortness of breath: NoPain with breathing: NoChronic cough: NoCoughing up blood: No,GASTROINTESTINAL:Heart burn: NoNausea: NoDiarrhea: NoBlood in the stool or black stool: NoAbdominal pain: NoGENITOURINARY:Blood in urine: NoPain or burning on urination: No]MUSCULOSKELETAL:Joint pain: YesJoint swelling: YesMorning stiffness in joints: YesMuscle weakness: YesBack pain: YesSKIN:Rashes: NoSun sensitive rashes: NoColor changes of hands or feet in the cold: NoHair loss: NoNail changes: NoNEUROLOGICAL:Headaches: NoDizziness: NoNumbness or tingling: NoMemory loss: NoSeizures: NoHEMATOLOGIC/LYMPHATIC:S wollen glands: NoAnemia: NoALLERGIES/IMMUNOLOGIC:A llergies (other than medications): YesIncreased susceptibility to infection: NoKNOWN MEDICAL CONDITIONS:Diabetes: NoThyroid disease: NoHigh blood pressure: NoPROMIS? (Patient-Reported Outcomes Measurement Information System) is a set ofperson-centered measures that evaluates and monitors physical, social, andemotional health. It can be used with the general population and withindividuals living with chronic conditions.March 13, 2017PROMIS 10: PHYSICAL AND MENTAL HEALTH:Global Physical Health T Score: 47.7Global Physical Health Percentile: 40.9Global Mental Health T Score: 50.8Global Mental Health Percentile: 53.19PROMIS PAIN, FATIGUE, FUNCTIONAL STATUS:PROMIS Pain Interference T Score: 52.25PROMIS Pain Interference Percentile: 40.9PROMIS Fatigue T Score: 47.56PROMIS Fatigue Percentile: 59.48PROMIS Functional Status T Score: 45.65PROMIS Functional Status Percentile: 33RAPID 3: DISEASE ACTIVITY:Weighed Score Levels:0 - 1: Near Remission1.3 - 2.0: Low Severity2.3 - 4.0: Moderate Severity4.3 - 10.0: High SeveritySCORES:RAPID 3 Functional Status Subscore: 0.7RAPID 3 Pain Tolerance Subscore: 3RAPID 3 Global Estimate Subscore: 1RAPID 3 Cumulative Score: 4.7RAPID 3 Weighed Score: 1.6GENERAL: No weight loss, malaise or fevers., SEE HPIHEENT: Negative for frequent or significant headaches, No changes in hearing orvision, no nose bleeds or other nasal problemsRESPIRATORY: Negative for cough, wheezing or shortness of breath.CARDIOVASCULAR: Negative for chest pain, leg swelling or palpitations.GI: Negative for abdominal discomfort, blood in stools or black stools orchange in bowel habitsMUSCULOSKELETAL :see HPISKIN: Negative for lesions, rash, and itching.PSYCH: Negative for sleep disturbance, mood disorder and recent psychosocialstressors.ADAMA RO: No history of headaches, syncope, paralysis, seizures or tremorsAll other reviewed and negative other than HPI.PAST MEDICAL HISTORYDiagnosis Date- Immunosuppressed status ([facility]) 04/19/2011- Polyarticular juvenile idiopathic arthritis ([facility]) 09/29/2010PAST SURGICAL HISTORYProcedure Laterality Date- NONEfolic acid 1 mg tablet Take 1 mg by mouth once daily.methotrexate 2.5 mg tablet Take 6 tabs po qwkbudesonide-formoterol (SYMBICORT) 160-4.5 mcg/actuation inhaler Inhale 2 Puffsas instructed twice daily.ibuprofen (MOTRIN) 800 mg tablet Take 800 mg by mouth twice daily.cetirizine (ZYRTEC) 10 mg tablet Take 10 mg by mouth once daily.NORGESTIMATE-ETHINY L ESTRADIOL (ORTHO-CYCLEN, 28, ORAL) Take by mouth.MULTIVITAMIN TAB Take one(1) tablet daily.FAMILY HISTORYProblem Relation Age of Onset- Arthritis Mother- Asthma Mother- Hypertension Mother- Diabetes Mother- Psychiatry Mother depression, anxiety- Lipids Mother- Hypertension Maternal Grandfather- Lipids Maternal Grandfather- Hypertension Maternal Grandmother- Lipids Maternal Grandmother- Psychiatry Maternal Grandmother depreesion, anxiety- Arthritis Maternal Grandmother- Hypertension Paternal Grandfather- Lipids Paternal Grandfather- Hypertension Paternal Grandmother- Lipids Paternal GrandmotherSocial History Marital status: Single Spouse name: Years of education: Number of children:Social History Main Topics Smoking status: Never Smoker Smokeless status: Never UsedSocial History Narrative Pt lives at home with mom and dad.BP 116/77 (BP Site: Left Arm, BP Position: Sitting, BP Cuff Size: Small Adult) Pulse 92 Ht 169 cm (5' 6.53ANDquot;) Wt 57.4 kg (126 lb 9.6 oz) BMI 20.11kg/m2PE; Well built and nourished. Pleasant mood. In no acute distress.Examination of the skin: She has no rashes, ulcers, nodules or tightening ofthe skin.Eyes: Pupils are equal in size and reactive to light. Conjunctivae arenoninjected. Sclerae are anicteric.Ears, Nose, Mouth and Throat: Nasal mucosa and septum appear normal. Teethand gums appear normal. Oropharynx is clear of erythema and exudate. Hearingis grossly normal.Neck: Supple. There is no JVD. Trachea is in the midline. There are nopalpable lymph nodes or scars.Respiratory: Lungs are clear to auscultation bilaterally with no dullness topercussion. There is good air movement in all lung zones.Cardiovascular: Heart rate is regular. Nomurmur or rub is appreciated. Shehas no carotid or abdominal bruits. Pedal pulses are easily palpable. She hasno significant edema or varicosities of his lower extremities.GI: Bowel sounds are present. Abdomen is soft and nontender without reboundor guarding. No mass or organomegaly is noted.Lymphatic: There is no lymphadenopathy in the axillary, epitrochlear or groinregions.Psychiatric: She is alert and oriented. She has good recall of recent andremote events.Neurologic: Cranial nerves II through XII seem grossly intact. Musclestrength and muscle tone seem normal. There is no decreased muscle mass.Musculoskeletal: She has normal gait and station. Her digits and nails appearnormal. All joints were examined and were normal without pain, tenderness,swelling, deformity, deformity/sublaxation, and with full range of motion.MOST RECENT LABS: REVIEWED WITH PATIENTIMP/PLAN: 21 yrs diagnosed with JOSH in November 2009 with polyarticular JOSH.Symptoms at that time- pain in both hips, pain in bilateral knees ankles andwrists. These joints became swollen , red and hot. intially went to Ortho intown for pain in her hips, who ran labs, told her that her sed rate was highand referred her to Rheum- evaluated by Dr Aguirre in Ped Rheum and diangosedwith JOSH. Started on methotrexate. Enbrel prescribed in March 2010. Combinationworked great for years, stopped both meds around 2012 as patient was inremission. Patient did well over the years, last year started motrin 800mg forback pain and then later ultram added last year for resurfacing of knee andback pain.''pain is slowly creeping again in different places''.Pain resurfaced in low back, lft knee, and rt hip restarted on MTX and since restarting it, she is doing much better. Statesher joint pains are minimal, no flares since lst visitCurrently on MTX 6 tabs po qwk, feels this is helping signifcantlyToday has pain in knees and hips on days when it is cold outsideNo em stiffness- few minutesTakes motrin 800mg po bid prn for painCheck labs todayContinue current management as she is doing well.F/U 4months time.Check following:-CBC + AUTO DIFF-COMP METABOLIC PANEL-SED RATE [id number] PROTEIN (CRP)Haleigh Fonseca, SUZETTEeferring Provider: HALEIGH FONSECA [[id number]]Allergies As of Date: 09/06/2017 Noted Allergy ReactionHYDROCODONE-ACETA MINOPHEN 11 - VomitingDate Reviewed: 09/06/2017Reviewed by: Aysha May LPN - Fully AssessedReason for Visit: Follow Up [171]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] Other Visit Diagnoses:Medication monitoring encounter [Z51.81] Pain in joint, multiple sites [M25.50]Order(s):methotre xate 2.5 mg tabletTake 6 tabs po qwkDisp: 24 tabletRfl: 3 folic acid 1 mg tabletTake 1 tablet by mouth once daily.Disp: 30 tabletRfl: 3 AST/SGOT BLD [SQAST] Order #: [id number] FUTURE ALT/SGPT [SQALT] Order #: [id number] FUTURE CBC [SQCBC] Order #: [id number] FUTURE RENAL FUNCTION PANEL [SQRFP] Order #: [id number] FUTUREPrescriptions as of 09/06/2017 Sig: METHOTREXATE SODIUM 2.5 MG TA* Take 6 tabs po qwk FOLIC ACID 1 MG TABLET Take 1 tablet by mouth once d* BUDESONIDE-FORMOTEROL HFA 160* Inhale 2 Puffs as instructed * IBUPROFEN 800 MG TABLET Take 800 mg by mouth twice da* CETIRIZINE 10 MG TABLET Take 10 mg by mouth once chris* * ORTHO-CYCLEN (28) ORAL Take by mouth. * MULTIVITAMIN TABLET Take one(1) tablet daily.Problem List As Of Date 09/06/2017 Noted Resolved Polyarticular juvenile idiopathic arthritis [M0*INVALID FOR* Immunosuppressed status [D89.9] INVALID FOR* Iron deficiency anemia [D50.9] INVALID FOR* Arm fracture, left [S42.302A] INVALID FOR*Prescriptions ordered this encounter Disp Refills Start End METHOTREXATE SODIUM 2.5 MG TABLET 24 t* 3 09/06/2017 Sig: Take 6 tabs po qwk FOLIC ACID 1 MG TABLET 30 t* 3 09/06/2017 Route: ORAL Sig: Take 1 tablet by mouth once daily.Medications Discontinued During This Encounter Methylphenidate (METADATE CD) 40 mg * 0 12/12/2012 09/06/2017 Class: Med Update Route: ORAL Sig: Take 40 mg by mouth once daily. Disc: Course of therapy completed DULoxetine (CYMBALTA) 30 mg capsule 09/06/2017 Class: Historical Med Route: ORAL Sig: Take 30 mg by mouth once daily. Disc: Course of therapy completed methotrexate 2.5 mg tablet 24 t* 3 03/13/2017 09/06/2017 Sig: Take 6 tabs po qwk Disc: Reason for discontinue is not on file. folic acid 1 mg tablet 09/06/2017 Class: Historical Med Route: ORAL Sig: Take 1 mg by mouth once daily. Disc: Reason for discontinue is not on file.Disposition: Return in about 4 months (around 01/04/2018) for RA 20m .Follow-up and Disposition History RecordedEncounter Number: [id number] Status:Closed by HALEIGH FONSECA MD on 09/06/17 Normal [facility] PROGRESSon 09-06-2017 PROGRESS HNO ID: [id number] thor: Haleigh Jackson: (none)Author Type: PhysicianType: Progress NotesFiled: 09/06/2017 11:25 AMNote Text:Juan Campbell is a 21 year old female who presents for follow up:RHEUM LABSPREVIOUS DIAG JIAINTERVAL HISTORY Since lst visit,stable, no major flares sincs lastvisit. Started MTX qwkly and feels it is helping.Today no joint pain or stiffnessNo complaints todayNo rash, ulcers, fevers, swollen lymph nodes, DVT/PE, raynauds, siccasymptoms,trouble swallowing, back pain, red eyes, Chron's/UC or Psoriasis.MEDS/THERAPIES TRIED:Started on methotrexate 2009. Later Enbrel prescribed in March 2010. Bothstopped in 2012 as patient was in remissionUltram and motrin the past year?MTX restarted in 2016Ultram prnMotrin prnREVIEW OF SYSTEMSREVIEW OF SYSTEMS: March 13, 2017CONSTITUTIONAL:Fever: NoFatigue: NoPain: NoEYES:Pain: NoRedness: NoLoss of vision: NoDryness: NoEAR, NOSE, MOUTH, THROAT:Nose bleeds: NoHearing loss: NoSores in mouth: NoSwallowing problems: NoDry mouth: NoCARDIOVASCULAR:Chest pain: NoSwelling in the feet or legs: NoRESPIRATORY:Shortness of breath: NoPain with breathing: NoChronic cough: NoCoughing up blood: No,GASTROINTESTINAL:Heart burn: NoNausea: NoDiarrhea: NoBlood in the stool or black stool: NoAbdominal pain: NoGENITOURINARY:Blood in urine: NoPain or burning on urination: No]MUSCULOSKELETAL:Joint pain: YesJoint swelling: YesMorning stiffness in joints: YesMuscle weakness: YesBack pain: YesSKIN:Rashes: NoSun sensitive rashes: NoColor changes of hands or feet in the cold: NoHair loss: NoNail changes: NoNEUROLOGICAL:Headaches: NoDizziness: NoNumbness or tingling: NoMemory loss: NoSeizures: NoHEMATOLOGIC/LYMPHATIC:S wollen glands: NoAnemia: NoALLERGIES/IMMUNOLOGIC:A llergies (other than medications): YesIncreased susceptibility to infection: NoKNOWN MEDICAL CONDITIONS:Diabetes: NoThyroid disease: NoHigh blood pressure: NoPROMIS? (Patient-Reported Outcomes Measurement Information System) is aset of person-centered measures that evaluates and monitors physical,social, and emotional health. It can be used with the general populationand with individuals living with chronic conditions.March 13, 2017PROMIS 10: PHYSICAL AND MENTAL HEALTH:Global Physical Health T Score: 47.7Global Physical Health Percentile: 40.9Global Mental Health T Score: 50.8Global Mental Health Percentile: 53.19PROMIS PAIN, FATIGUE, FUNCTIONAL STATUS:PROMIS Pain Interference T Score: 52.25PROMIS Pain Interference Percentile: 40.9PROMIS Fatigue T Score: 47.56PROMIS Fatigue Percentile: 59.48PROMIS Functional Status T Score: 45.65PROMIS Functional Status Percentile: 33RAPID 3: DISEASE ACTIVITY:Weighed Score Levels:0 - 1: Near Remission1.3 - 2.0: Low Severity2.3 - 4.0: Moderate Severity4.3 - 10.0: High SeveritySCORES:RAPID 3 Functional Status Subscore: 0.7RAPID 3 Pain Tolerance Subscore: 3RAPID 3 Global Estimate Subscore: 1RAPID 3 Cumulative Score: 4.7RAPID 3 Weighed Score: 1.6GENERAL: No weight loss, malaise or fevers., SEE HPIHEENT: Negative for frequent or significant headaches, No changes inhearing or vision, no nose bleeds or other nasal problemsRESPIRATORY: Negative for cough, wheezing or shortness of breath.CARDIOVASCULAR: Negative for chest pain, leg swelling or palpitations.GI: Negative for abdominal discomfort, blood in stools or black stools orchange in bowel habitsMUSCULOSKELETAL :see HPISKIN: Negative for lesions, rash, and itching.PSYCH: Negative for sleep disturbance, mood disorder and recentpsychosocial stressors.NEURO: No history of headaches, syncope, paralysis, seizures or tremorsAll other reviewed and negative other than HPI.PAST MEDICAL HISTORYDiagnosis Date- Immunosuppressed status ([facility]) 04/19/2011- Polyarticular juvenile idiopathic arthritis (HCC) 09/29/2010PAST SURGICAL HISTORYProcedure Laterality Date- NONEfolic acid 1 mg tablet Take 1 mg by mouth once daily.methotrexate 2.5 mg tablet Take 6 tabs po qwkbudesonide-formoterol (SYMBICORT) 160-4.5 mcg/actuation inhaler Inhale 2Puffs as instructed twice daily.ibuprofen (MOTRIN) 800 mg tablet Take 800 mg by mouth twice daily.cetirizine (ZYRTEC) 10 mg tablet Take 10 mg by mouth once daily.NORGESTIMATE-ETHINY L ESTRADIOL (ORTHO-CYCLEN, 28, ORAL) Take by mouth.MULTIVITAMIN TAB Take one(1) tablet daily.FAMILY HISTORYProblem Relation Age of Onset- Arthritis Mother- Asthma Mother- Hypertension Mother- Diabetes Mother- Psychiatry Mother depression, anxiety- Lipids Mother- Hypertension Maternal Grandfather- Lipids Maternal Grandfather- Hypertension Maternal Grandmother- Lipids Maternal Grandmother- Psychiatry Maternal Grandmother depreesion, anxiety- Arthritis Maternal Grandmother- Hypertension Paternal Grandfather- Lipids Paternal Grandfather- Hypertension Paternal Grandmother- Lipids Paternal GrandmotherSocial History Marital status: Single Spouse name: Years of education: Number of children:Social History Main Topics Smoking status: Never Smoker Smokeless status: Never UsedSocial History Narrative Pt lives at home with mom and dad.BP 116/77 (BP Site: Left Arm, BP Position: Sitting, BP Cuff Size: SmallAdult) Pulse 92 Ht 169 cm (5' 6.53 ) Wt 57.4 kg (126 lb 9.6 oz) BMI 20.11 kg/m2PE; Well built and nourished. Pleasant mood. In no acute distress.Examination of the skin: She has no rashes, ulcers, nodules or tighteningof the skin.Eyes: Pupils are equal in size and reactive to light. Conjunctivae arenoninjected. Sclerae are anicteric.Ears, Nose, Mouth and Throat: Nasal mucosa and septum appear normal.Teeth and gums appear normal. Oropharynx is clear of erythema andexudate. Hearing is grossly normal.Neck: Supple. There is no JVD. Trachea is in the midline. There are nopalpable lymph nodes or scars.Respiratory: Lungs are clear to auscultation bilaterally with no dullnessto percussion. There is good air movement in all lung zones.Cardiovascular: Heart rate is regular. Nomurmur or rub is appreciated.She has no carotid or abdominal bruits. Pedal pulses are easily palpable. She has no significant edema or varicosities of his lower extremities.GI: Bowel sounds are present. Abdomen is soft and nontender withoutrebound or guarding. No mass or organomegaly is noted.Lymphatic: There is no lymphadenopathy in the axillary, epitrochlear orgroin regions.Psychiatric: She is alert and oriented. She has good recall of recentand remote events.Neurologic: Cranial nerves II through XII seem grossly intact. Musclestrength and muscle tone seem normal. There is no decreased muscle mass.Musculoskeletal: She has normal gait and station. Her digits and nailsappear normal. All joints were examined and were normal without pain,tenderness, swelling, deformity, deformity/sublaxation, and with fullrange of motion.MOST RECENT LABS: REVIEWED WITH PATIENTIMP/PLAN: 21 yrs diagnosed with JOSH in November 2009 with polyarticular JOSH.Symptoms at that time- pain in both hips, pain in bilateral knees anklesand wrists. These joints became swollen , red and hot. intially went toOrtho in town for pain in her hips, who ran labs, told her that her sedrate was high and referred her to Rheum- evaluated by Dr Aguirre in [facility] and diangosed with JOSH. Started on methotrexate. Enbrel prescribedin March 2010. Combination worked great for years, stopped both meds [id number] as patient was in remission. Patient did well over the years, lastyear started motrin 800mg for back pain and then later ultram added lastyear for resurfacing of knee and back pain.''pain is slowly creeping again in different places''.Pain resurfaced in low back, lft knee, and rt hip restarted on MTX and since restarting it, she is doing much better.States her joint pains are minimal, no flares since lst visitCurrently on MTX 6 tabs po qwk, feels this is helping signifcantlyToday has pain in knees and hips on days when it is cold outsideNo em stiffness- few minutesTakes motrin 800mg po bid prn for painCheck labs todayContinue current management as she is doing well.F/U 4months time.Check following:-CBC + AUTO DIFF-COMP METABOLIC PANEL-SED RATE [id number] PROTEIN (CRP)Haleigh Fonseca MD Normal [facility] Renal Function Panelon 09-06 Albumin 4.4 g/dL Normal 3.9-4.9 [facility] Comment on above: Performed By: #### C BC, ALT, AST, RFP ####[facility] [phone] Anion gap 14 mmol/L Normal 9-18 [facility] Comment on above: Performed By: #### C BC, ALT, AST, RFP ####[place] [id number] [place] [phone] Calcium 9.5 mg/dL Normal 8.5-10.2 [facility] Comment on above: Performed By: #### C BC, ALT, AST, RFP ####[facility] [place] [phone] Chloride 100 mmol/L Normal 97-105 [facility] Comment on above: Performed By: #### C BC, ALT, AST, RFP ####[facility] [place] [phone] CO2 24 mmol/L Normal 22-30 [facility] Comment on above: Performed By: #### C BC, ALT, AST, RFP ####[facility] [place] [phone] Creatinine 0.64 mg/dL Normal 0.58-0.96 [facility] Comment on above: Performed By: #### C BC, ALT, AST, RFP ####[place] [id number] [phone] eGFR (non-black) mL/min/{1.73_m2} Normal Cl [facility] Comment on above: Result Comment: eGFR (Estimated GFR) Units of measure: mL/min/1.73 meters squaredeGFR is derived from the reexpressed MDRD Study equation using the following parameters: serum creatinine, age, gender and race. The creatinine assay has been calibrated to be traceable to IDMS.An eGFR <60 mL/min/1.73m2 for >3 months is consistent with chronic kidney disease. Refer to KDOQI guidelines for clinical interpretation.In patients with unstable renal function, e.g. those with acute kidney injury, the eGFR may not accurately reflect actual GFR. Performed By: #### C BC, ALT, AST, RFP ####[facility] [place], [place] [phone] Glucose mass conc 90 mg/dL Normal 74-99 [facility] Comment on above: Result Comment: The [place] Diabetes Association (ADA) provides guidance for cutoff values for fasting glucose and random glucose. The ADA defines fasting as no caloric intake for at least 8 hours. Fasting plasma glucose results between 100 to 125 mg/dL indicate increased risk for diabetes (prediabetes).Fasting plasma glucose results greater than or equal to 126 mg/dL meet the criteria for diagnosis of diabetes. In the absence of unequivocal hyperglycemia, results should be confirmed by repeat testing. In a patient with classic symptoms of hyperglycemia or hyperglycemic crisis, random plasma glucose results greater than or equal to 200 mg/dL meet the criteria for diagnosis of diabetes.Reference: Standards of Medical Care in Diabetes 2016, [place] Diabetes Association. Diabetes Care. 2016.39(Suppl 1). Performed By: #### C BC, ALT, AST, RFP ####[facility], [place] [phone] Phosphate 3.4 mg/dL Normal 2.7-4.8 [facility] Comment on above: Performed By: #### C BC, ALT, AST, RFP ####[address] [phone] Potassium molar conc 4.5 mmol/L Normal 3.7-5.1 [facility] Comment on above: Performed By: #### C BC, ALT, AST, RFP ####[facility] [place], [place] [phone] Sodium 138 mmol/L Normal 136-144 [facility] Comment on above: Performed By: #### C BC, ALT, AST, RFP ####[facility] [address] [place], [place] [phone] Urea nitrogen 8 mg/dL Normal 7-21 [facility] Comment on above: Performed By: #### C BC, ALT, AST, RFP ####[facility] [address] [place], [place] [phone] Coding Summary.on 05-11-2017 Coding Summary. 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 However, the narrative phrase printed from the coding software may appear abbreviated, or result in slightly different terminology. Coded By: Ngoc Choi Date Saved: 05/11/2017 09:00 am Normal [facility] Coding Summary. 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 However, the narrative phrase printed from the coding software may appear abbreviated, or result in slightly different terminology. Coded By: Ngoc Choi Date Saved: 05/11/2017 08:35 am Normal [facility] Main OR Intraoperative Recor don 05-09-2017 Main OR Intraoperative Record IntraOp Document Type FTURO Summary Primary Physician: Adi Boyd MD Finalized Date/Time: 05/09/17 07:53:22 Pt. Name: BOSSMAN CAMPBELLTONNY Singh/Sex: 1995 Female Med Rec #: [id number] Physician: Adi Boyd MD Financial #: [id number] Pt. Type: O Room/Bed: / Admit/Disch: 05/09/17 07:08:59 - Institution: Case Times FTURO Entry 1 Patient Times In Room 05/09/17 07:40:00 Out Room 05/09/17 07:58:00 Procedure Times Start 05/09/17 07:45:00 Stop 05/09/17 07:52:00 Anesthesia Times Last Modified By: Bob PERRY, TONYOR, Adelina 05/09/17 07:53:11 Case Attendance FTURO Entry 1 Entry 2 Entry 3 Case Attendee Deb OLIVER, Adi Field ACCOUNTING TECHNICIAN, Consuelo Rojas RN, TONYOR, Adelina Role Performed Surgeon - Primary Scrub - Primary Straight Line Edger - Primary Time In 05/09/17 07:40:00 05/09/17 07:40:00 05/09/17 07:40:00 Time Out 05/09/17 07:58:00 05/09/17 07:58:00 05/09/17 07:58:00 Procedure CYSTOSCOPY LOCAL WITH CYSTOSCOPY LOCAL WITH CYSTOSCOPY LOCAL WITH STENT REMOVAL(Left) STENT REMOVAL(Left) STENT REMOVAL(Left) Comments Last Modified By: Bob RN, TONYOR, Bob RN, TONYOR, Bob PERRY, TONYOR, Adelina 05/09/17 Adelina 05/09/17 Adelina 05/09/17 07:53:13 07:53:13 07:53:13 Surgical Procedures FTURO Entry 1 Procedure Description Procedure CYSTOSCOPY LOCAL WITH Modifiers Left STENT REMOVAL Surgeon Description CYSTO LEFT STENT REMOVAL Primary Procedure Yes Primary Surgeon Adi Boyd MD Start 05/09/17 07:45:00 Stop 05/09/17 07:52:00 Anesthesia Type Local Surgical Service Urology Wound Class 2 - Clean-Contaminated Last Modified By: MARGARITO Rojas RN, Ruthann 05/09/17 07:53:15 General Case Data FTURO Pre-Care Text: Classifies surgical wound, implements aseptic technique, initiates traffic control Entry 1 Case Information OR URO 1 FT Case Level None Wound Class 2 - Clean-Contaminated Specialty Urology Preop Diagnosis S/P LEFT STENT PLACMENT Postop Same As Preop Yes Postop Diagnosis S/P LEFT STENT PLACMENT Outcomes Met? Yes Last Modified By: MARGARITO Rojas RN, Ruthann 05/09/17 06:26:25 Post-Care Text: The patient is free from signs and symptoms of infection EU IntraOp - FTURO Pre-Care Text: Implements protective measures prior to operative or invasive procedure, confirms identity before the operative or invasive procedure, verifies operative procedure, surgical site, and laterality Entry 1 EU Perioperative Protocols Procedure(s) CYSTOSCOPY LOCAL WITH Patient Identity Birthday, ID Band STENT REMOVAL(Left) Verified (select at Check, Patient least 2): Participation Consents / H and P HandP, Surgery/Procedure Operative Site N/A Verified Consent Marking Verified Surgical Site Yes Laterality Verified n/a Verified Procedure Verified Yes Correct Patient Yes Position Verified Availability Equipment, Implant, Time Out Deb OLIVER, Adi Marvin, Verified (If Medication Participants [facility], Applicable) MARGARITO Rojas RN, Ruthann Time Out Complete 05/09/17 07:43:00 Allergies Reviewed? Yes Allergies Reviewed Self/Patient With Body Position Frog Legged Prep Area perineal area Prep Agents Betadine Solution Skin. Condition Intact Additional None Specimens Collected Vitals - EU Blood Pressure Pulse Respirations SPO2 EBL 0 IandO - EU Total Intake 0 mL Total Output 0 mL Outcomes Met? Yes Last Modified By: MARGARITO Rojas RN, Ruthann 05/09/17 07:45:55 Post-Care Text: The patient is free from signs and symptoms of injury caused by extraneous objects Case Comments Finalized By: MARGARITO Rojas RN, Ruthann Document Signatures Signed By: MARGARITO Rojas RN, Ruthann 05/09/17 07:53 Normal [facility] Main OR Preoperative Recordo n 05-09-2017 Main OR Preoperative Record Holding Area Document Type FTURO Summary Primary Physician: Adi Boyd MD Finalized Date/Time: 05/09/17 07:45:13 Pt. Name: JUAN CAMPBELL /Sex: 1995 Female Med Rec #: [id number] Physician: Adi Boyd MD Financial #: [id number] Pt. Type: O Room/Bed: / Admit/Disch: 05/09/17 07:08:59 - Institution: Case Times Holding FTURO Pre-Care Text: Verifies consent for planned procedure, identifies individual values and wishes concerning care, includes family members in perioperative teaching Secures patient's records' belongings, and valuables, maintains patient's dignity and privacy, and maintains patient confidentiality Entry 1 In Holding 05/09/17 07:16:00 Outcomes Met? Yes Last Modified By: Arlet Rios LPN 05/09/17 07:17:08 Post-Care Text: The patient participates in decisions affecting his or her perioperative plan of care The patient's right to privacy is maintained Surgery Checklist FTURO Entry 1 Patient Birthday, ID Band Procedure History and Physical, Identification: Check, Patient Verification: Surgical Consent, With Participation Patient NPO after Midnight: n/a Personal Items: Jewelry Personal Items earrings x 2 pair, Complaints of Pain: No Comment: belly ring Skin Integrity Intact, [place], Warm, & Dry Vitals - EU Blood Pressure 126/87 Pulse 88 bpm Respirations 18 br/min SPO2 RN Reviewed Yes Last Modified By: MARGARITO Rojas RN, Ruthann 05/09/17 07:45:09 Finalized By: MARGARITO Rojas RN, Ruthann Document Signatures Signed By: Arlet Rios LPN 05/09/17 07:20 MARGARITO Rojas RN, Ruthann 05/09/17 07:45 Normal [facility] Operative Reporton 7 Operative Report Patient: AMPARO CAMPBELL Age: 22 years Sex: Female : 1995 Associated Diagnoses: None Author: Adi oByd MD Procedure Operative Information Details: Date/ Time: 05/09/17 07:55:00. Pre-Op Dx: Foreign Body in Bladder - T19.1XXA. Post-Op Dx: Same. Anesthesia Type: Local. Procedure: Local Cystoscopy with Stent Removal. Complications: None. Risks/Benefits/Informed Consent: Surgical risks, benefits, details of the procedure have been explained to the patient, Full informed consent has been obtained. Intraoperative Information Prepped: The patient was placed in a modified dorso-lithotomy position, The patient was prepped with the Betadine solution. Anesthesia: 2% Xylocaine Jelly per urethra. Procedure: Cystoscopy and Left Stent Removal, The flexible Cystoscope was passed in retrograde fashion into the bladder without difficulty, The bladder was viewed in entirety and found to be without tumors or stones, Mild inflammation was seen surrounding the orifice with the stent seen protruding from it, The stent was then grasped and removed in its entirety. Specimens Removed: None. Devices Implanted: None. Postoperative Information Discharge: The patient tolerated the procedure well and was subsequently discharged home. Normal [facility] Comment on above: Result Comment: Elec tronically Signed By: Adi Boyd MD\.br\Date and Time Signed: 05/09/17 07:57 EDT CALCULI URINARYon 04-18-2017 CSNOTE (NOTE) Normal [facility] Comment on above: Result Comment: Calc ulus Color: BEIGECalculus Size & Weight: MULTIPLE PIECES, 0.0702 GRAMSComposition: CALCIUM PHOSPHATE - 80% MINOR COMPONENTS - 20%This test was developed and its performance characteristicsdetermined by the [facility] [place] ([facility]).It has not been cleared or approved by the FDA.[facility] is regulated under CLIA as qualified to performhigh-complexity testing.This test is used for clinical purposes. It should not be regarded asinvestigational or for research. Test Performed By: [facility] [employer] [address] [place] [address] Patrol Driver: Linda Belcher MD, PhD Performed By: #### C ####[facility] [address] [place] [address] Desiree CSTYPE KIDNEY Normal [facility] Comment on above: Performed By: #### C ####[facility] [address] [place], [place] [address]YvnjgmBrayden Ramírez OPERATIVE NOTEon 04-13-2017 OPERATIVE NOTE OPERATIVE NOTEOPERAT ION DATE: 2-93-12HAOYCYWSTX:General .PREOPERATIVE DIAGNOSIS:Left distal ureteral calculus.POSTOPERATIVE DIAGNOSIS:Impacted left distal ureteral calculus and left distalureteral structure.PROCEDURE NAME:1. Left ureteral ESWL.2. Cystoscopy.3. Rigid ureteral dilation of ureteral stricture.4. Ureteroscopy.5. Holmium laser lithotripsy of large ureteral calculus.6. Basket extraction of ureteral calculus.7. Left stent placement 6 Guatemalan variable length.COMPLICATIONS: None.ICD-10 CODE:N20.1INDICATIONS: Juan is a 22 year-old lady who about three months ago had acuteleft flank pain. CT scan showed a 7-8 mm distal left ureteral calculus withipsilateral hydronephrosis. She has not had any urological followup since beingin the ER until just a day or two ago when I saw her in the office for thefirst time. She now presents for left ESWL and possible ureteroscopic stonemanipulation and stent placement. She has signed an informed consent.PROCEDURE: The patient was brought to the OR and placed on the LithoTronlithotripsy treatment table in the supine position. SCD's were placed on herlower extremities, turned on and functioning during the entire case. Generalanesthesia was administered vis LMA. We then brought the treatment head to herleft flank and we identified her distal left ureteral calculus and placed it inthe crosshairs. We then began applying shocks at 16 kV and increased to amaximum of 26 kV. Intermittent fluoroscopy showed that the stone was very slowto fragment. After 1,000 shocks there was subtle peripheral fragmentation. Wegave a total of 2,100 shocks and did not get any significant fragmentation andtherefore we stopped the procedure.She was then repositioned into the modified dorsal lithotomy position. Allpressure points were satisfactorily padded. Genitalia were sterilely preppedand draped in the usual fashion. I started by passing a 22 Guatemalan Olympuscystoscope per urethrum and into the bladder. Panendoscopy in the bladdershowed a large blot clot protruding from the edematous, erythematous distalleft ureter. The UO was very stenotic. We could see yellow stone within the UO.We then passed a glidewire through the scope and cannulated the left ureter andgot it up into the kidney. We then rigidly dilated the distal left ureter withan 8 and 10 Guatemalan dilator. The ureter was strictured and the stone wasimpacted.We then passed a semirigid Olympus ureteroscope adjacent to the wire throughthe urethra into the bladder and in the left ureter. We then passed a semirigidOlympus ureteroscope adjacent to the wire through the urethra into the bladderand in the left ureter. We the passed a 365 Angstrom Holmium laser fiberthrough the scope and made contact with the stone. We then began doing laserlithotripsy at 4 vargas continuously. The stone was significantly larger thandocumented on CT. It took quite a bit of energy just to fragment the stone. Danna used a zero-tip Nitinol basket and brought pieces down from the ureter anddumped them in the base of the bladder. We went up and down the ureter numeroustimes until the ureter was stone free.We then back loaded the cystoscope over the wire and passed it into the bladderand then slid a 6 Guatemalan variable length stent over the wire up into the kidney. The wire was removed and there were good curls in the kidney and the bladder.We then used the CytoViva evacuator to irrigate out all of the stones and thesewere sent for analysis. The bladder was drained of its contents and the scopewas then removed.She was then transferred [facility] and wheeled to the Recovery Room instable condition after the anesthetic was reversed. [place] with a script for Keflex 500 mg daily #30 and Ditropan XL 10mg daily #30. We till get her stent out in about 3-4 weeks. Normal [facility] PREG HCG QUALon 04-13-2017 , QUAL Negative Normal NEGATIVE [facility] Comment on above: Performed By: #### P REG ####[facility] Gcekslzpmr1816 [address] [place] XR KUB 1 VIEWon 04-13-2017 XR KUB 1 VIEW [address] [place] [address] Patient: JUAN CAMPBELL Exam Date: 04/13/2017DOB: 1995 Gender:F : DR ADI BOYD . Admission #: [id number] : Order #: [id number] HERE TO VIEW EXAM RADIOLOGY REPORT PROCEDURE: RADIOGRAPH KUB 1 VIEW COMPARISON: XR KUB 1 VIEW, 04/10/2017. INDICATIONS: Subsequent imaging for left ureter stone, hydronephrosis FINDINGS: KIDNEY/URETER - RIGHT: No visible renal or ureteral calcifications.KIDNEY/URE TER - LEFT: No visible renal or ureteral calcifications.PELVIS: 7 mm left pelvic calcification BOWEL: No abnormal dilation or deviation.BONES: No acute abnormality. OTHER: Negative. No abnormal gaseous collections. CONCLUSION: 1. 7 mm distal left ureterolith Dictated by: Gena Calabrese M.D. on 04/13/2017 at 09:07 Approved by: Gena Calabrese M.D. on 04/13/2017 at 09:07 Normal [facility] CBC AUTO DIFFon 04-10-2017 Basophils Auto #/vol (Bld) 0.1 103/ul Normal 0.0-0.1 [facility] Comment on above: Performed By: #### C BC ####[facility] Gti[address]4134 [place] [phone] Basophils/100 WBC Auto (Bld) 0.5 % Normal 0.2-2.0 [facility] Comment on above: Performed By: #### C BC ####[facility] Tloyesdarz2712 [place], [place] [address]Nzvnjy [place] Eosinophils 0.0 103/ul Normal 0.0-0.7 [facility] Comment on above: Performed By: #### C BC ####[facility] K[address] [place] [address] Eosinophils/100 leukocytes 0.3 % Critically low 0.9-7.0 [facility] Comment on above: Performed By: #### C BC ####[facility] Enbtisoecd6126 [address] [place] Erythrocyte distribution width Auto Ratio (RBC) 12.7 % Normal 11.0-15.0 [facility] Comment on above: Performed By: #### C BC ####[facility] Wutlvsvpjb6207 [address] [place] Erythrocytes (RBC) 4.47 106/ul Normal 4.20-5.40 [facility] Comment on above: Performed By: #### C BC ####[facility] Hkzqlytxyq9942 [address] [place] Hematocrit (HCT) 38.8 % Normal 36.0-48.0 [facility] Comment on above: Performed By: #### C BC ####[facility] Holqfqypxu2968 [address] [place] Hemoglobin mass conc (Bld) 13.2 g/dL Normal 12.0-16.0 [facility] Comment on above: Performed By: #### C BC ####[facility] Yiuceomtrf1148 [address] [place] IG # 0.04 10e3/ul Critically high 0.00-0.03 [facility] Comment on above: Performed By: #### C BC ####[facility] Dlxyajmddj4681 [address] [place] IG % 0.4 % Normal 0.0-0.5 [facility] Comment on above: Performed By: #### C BC ####[facility] Qisoxlunxu5041 [address] [place] Lymphocytes 1.7 103/ul Normal 1.2-3.8 [facility] Comment on above: Performed By: #### C BC ####[facility] Wokxosrvsn7134 [address]tanesha Ramírez Lymphocytes/100 leukocytes 15.4 % Critically low 20.5-60.0 [facility] Comment on above: Performed By: #### C BC ####[facility] Ulccvznpyw9776 [address] [place] MANUAL DIFF REQ NO Normal [facility] Comment on above: Performed By: #### C BC ####[facility] Qpymredqry5419 [place], [place] [address]Pkonth [place] MCH 29.5 pg Normal 26.7-34.0 [facility] Comment on above: Performed By: #### C BC ####[facility] Oyxwvrzfps4753 [place], [place] [address]Sddlrw [place] MCHC mass conc (RBC) 34.0 g/dL Normal 29.9-35.2 [facility] Comment on above: Performed By: #### C BC ####[facility] Nsfyuyxwpz6703 [place] [phone] MCV 86.8 fL Normal 81.0-99.0 [facility] Comment on above: Performed By: #### C BC ####[facility] [address] [place], [place] [address]Gerken [place] Monocytes 0.4 103/ul Normal 0.3-0.8 [facility] Comment on above: Performed By: #### C BC ####[facility] [address]fph[address]fiii[address] [place], [place] [address]ken [place] Monocytes/100 leukocytes 4.0 % Normal 1.7-12.0 [facility] Comment on above: Performed By: #### C BC ####[facility] Swruqqlreh[address] [place], [place] [address]ken [place] Neutrophils 8.5 103/ul Critically high 1.4-6.5 [facility] Comment on above: Performed By: #### C BC ####[facility] [address] [place] [address]Nrjqxk [place] Neutrophils/100 WBC Auto (Bld) 79.4 % Critically high 43.0-75.0 [facility] Comment on above: Performed By: #### C BC ####[facility] Onjeklzlfo5463 [place], [place] [address]Fjcqkb [place] Platelet mean volume (PMV) 9.2 fL Critically low 9.5-13.5 [facility] Comment on above: Performed By: #### C BC ####[facility] Xebighvoqz2682 [place], [place] [address]Evxwsi [place] Platelets 348 103/ul Normal 150-450 [facility] Comment on above: Performed By: #### C BC ####[facility] Lpbrommkvq2849 [place], [place] [address]Bhaaor [place] WBC (Leukocytes) 10.7 103/ul Normal 4.0-11.0 [facility] Comment on above: Performed By: #### C BC ####[facility] Cjpifrbffy9079 [place] [address] PROF CHEM 8 (BAS METB)on Anion gap 14.1 mmol/L Normal [facility] Comment on above: Performed By: #### B MP ####[facility] C[address]ozrkwkt[address] [place], [place] [address]ken [place] BUN/Creatinine Ratio 18.4 mg/mg Normal [facility] Comment on above: Performed By: #### B MP ####[facility] Huxiwnhtfx[address] [place], [place] [address] Calcium 9.8 mg/dL Normal 8.4-10.2 [facility] Comment on above: Performed By: #### B MP ####[facility] Mwv[address]vbtif[address] [place], [place] [address] Chloride 100 mmol/L Normal 98-107 [facility] Comment on above: Performed By: #### B MP ####[facility] Ahvuvtikuj[address] [place], [place] [address] CO2 28.0 mmol/L Normal 22.0-30.0 [facility] Comment on above: Performed By: #### B MP ####[facility] T[address]axwd[address] [place], [place] [address] Creatinine 0.59 mg/dL Normal 0.52-1.04 [facility] Comment on above: Performed By: #### B MP ####[facility] Loznbwhyfi[address] [place], [place] [address]ken [place] eGFR (non-black) mL/min/{1.73_m2} Normal >=60 [facility] Comment on above: Performed By: #### B MP ####[facility] Pgztrfpknr7137 [address] [place] Glucose mass conc 98 mg/dL Normal 74-106 [facility] Comment on above: Performed By: #### B MP ####[facility] Aespechajt4900 [address] [place] Potassium molar conc 4.2 mmol/L Normal 3.4-5.0 [facility] Comment on above: Performed By: #### B MP ####[facility] Evbbsqovfi9608 [address] [place] Sodium 138 mmol/L Normal 137-145 [facility] Comment on above: Performed By: #### B MP ####[facility] Nauoulxjtg7253 [address] [place] Urea nitrogen 11.0 mg/dL Normal 7.0-17.0 [facility] Comment on above: Performed By: #### B MP ####[facility] [address] [place] [address] [place] PROTIMEon 04-10-2017 INR Coag RelTime (Bld) SEE BELOW Normal [facility] Comment on above: Result Comment: DEVON RED INR: 2.0 - 3.0 CONDITIONS NOT LISTED BELOW 2.5 - 3.5 FOR PROSTHETIC HEART VALVE REPLACEMENT 2.5 - 3.5 RECURRENT THROMBOSIS Performed By: #### P TT, PT ####[facility] Peqylxeijr5[address] [place] INR Coag RelTime (PPP) 1.07 {INR} Normal [facility] Comment on above: Performed By: #### P TT, PT ####[facility] [address] [place] [address] [place] Prothrombin time (PT) Coag time (PPP) 11.1 s Normal 9.7-11.7 [facility] Comment on above: Performed By: #### P TT, PT ####[facility] [address] [place] [address] [place] PT NORMAL PLEASE NOTE: NORMAL RANGE CHANGE 05-22-2014 DUE TO REAGENT LOT CHANGE Normal [facility] Comment on above: Performed By: #### P TT, PT ####[facility] Xtdmvhsrqj3474 [place], [place] [address]EbybzcBrayden Ramírez PTTon 04-10-2017 aPTT 24.6 s Normal 22.1-30.2 [facility] Comment on above: Performed By: #### P TT, PT ####[facility] Ipkzfhrmqe0697 [place], [place] [address]EguibgBrayden Ramírez aPTT PLEASE NOTE: NORMAL RANGE CHANGE 07-29-2015 DUE TO REAGENT LOT CHANGE Normal [facility] Comment on above: Performed By: #### P TT, PT ####[facility] Iqckihnnmh8680 [place], [place] Dread Ramírez XR C-SPINE MIN 4 VIEWSon XR C-SPINE MIN 4 VIEWS [address] [place] [address] Patient: CAMPBELL JUAN Chung Exam Date: 04/10/2017DOB: 1995 Gender:F : DR LARS WARD Admission #: [id number] : DR ADI BOYD . Order #: [id number] HERE TO VIEW EXAM RADIOLOGY REPORT PROCEDURE: RADIOGRAPH C-SPINE MIN 4 VIEWS COMPARISON: None. INDICATIONS: Rheumatoid arthritis, pre-surgical FINDINGS: BONES: Normal. No significant spondylosis, scoliosis, fracture, or visible bony lesion. No change in alignment during flexion and extension.DISC SPACES: Normal. No significant disc height narrowing, subluxation, or endplate abnormality. PARASPINOUS: Negative. No paraspinous abnormality is seen. OTHER: Negative. CONCLUSION: Normal examination. Dictated by: Jose Taylor M.D. on 04/10/2017 at 16:04 Approved by: Jose Taylor M.D. on 04/10/2017 at 16:08 Normal [facility] XR CHEST 2 Von 04-10-2017 XR CHEST 2 V [address] [place] [address] Patient: JUAN CAMPBELL Exam Date: 04/10/2017DOB: 1995 Gender:F : DR ADI BOYD . Admission #: [id number] : DR MIKE ANDERS Order #: [id number] HERE TO VIEW EXAM RADIOLOGY REPORT PROCEDURE: RADIOGRAPH CHEST 2 VIEWS COMPARISON: None. INDICATIONS: Asthma, pre-surgical FINDINGS: LUNGS: No significant pulmonary parenchymal abnormalities. VASCULATURE: No increased pulmonary vasculature. PLEURA: No pneumothorax, effusion, or pleural thickening. CARDIAC: No cardiomegaly or cardiac silhouette abnormality. MEDIASTINUM: No visible mass or adenopathy. BONES: No fracture or visible bone lesion. OTHER: Negative. CONCLUSION: Normal examination. Dictated by: Jose Taylor M.D. on 04/10/2017 at 16:02 Approved by: Jose Taylor M.D. on 04/10/2017 at 16:04 Normal [facility] XR KUB 1 VIEWon 04-10-2017 XR KUB [address] [place] [address] Patient: JUAN CAMPBELL Exam Date: 04/10/2017DOB: 1995 Gender:F : DR MIKE ANDERS Admission #: [id number] : DR ADI BOYD . Order #: [id number] HERE TO VIEW EXAM RADIOLOGY REPORT PROCEDURE: RADIOGRAPH KUB 1 VIEW COMPARISON: CT ABD/PELVIS WO CON, 01/27/2017. INDICATIONS: History of calculus of kidney N20.0; left flank pain FINDINGS: KIDNEY/URETER - RIGHT: No visible renal or ureteral calcifications.KIDNEY/URE TER - LEFT: No visible renal or ureteral calcifications.PELVIS: 7 mm stone within the lower left pelvis, new since the prior CT study and, suspect it represents a compression of the previously seen proximal ureterolith. BOWEL: No abnormal dilation or deviation.BONES: No acute abnormality. OTHER: Negative. No abnormal gaseous collections. CONCLUSION: 1. 7 mm stone within the pelvis suspected to a distal left ureterolith. The patient had moderate hydronephrosis on the January 2017 CT study. Would suspect continued hydronephrosis. Dictated by: Jose Taylor M.D. on 04/10/2017 at 11:45 Approved by: Jose Taylor M.D. on 04/10/2017 at 11:49 Normal [facility] CBCon 03-13-2017 Erythrocyte distribution width Auto Ratio (RBC) 13.2 % Normal 11.5-15.0 [facility] Comment on above: Performed By: #### C BC, CMP ####[address] [phone] Erythrocytes (RBC) 4.11 10*6/uL Normal 3.90-5.20 [facility] Comment on above: Performed By: #### C BC, CMP ####[address] [place], [place] [phone] Erythrocytes (RBC) 0.00 10*6/uL Normal 0.00 [facility] Comment on above: Performed By: #### C BC, CMP ####[place] [address] [place], [place] [phone] Hematocrit (HCT) 37.9 % Normal 36.0-46.0 [facility] Comment on above: Performed By: #### C BC, CMP ####[address] [phone] Hemoglobin mass conc (Bld) 12.0 g/dL Normal 11.5-15.5 [facility] Comment on above: Performed By: #### C BC, CMP ####[place] [address] [place], [place] [phone] MCH 29.2 pG Normal 26.0-34.0 [facility] Comment on above: Performed By: #### C BC, CMP ####[address] [phone] MCHC mass conc (RBC) 31.7 g/dL Normal 30.5-36.0 [facility] Comment on above: Performed By: #### C BC, CMP ####[place] [address] [place], [place] [phone] MCV 92.2 fL Normal 80.0-100.0 [facility] Comment on above: Performed By: #### C BC, CMP ####[facility] [place], [place] [phone] Platelet mean volume (PMV) 9.6 fL Normal 9.0-12.7 [facility] Comment on above: Performed By: #### C TALISHA, CMP ####[facility] [place], [place] [phone] Platelets 338 10*3/uL Normal 150-400 [facility] Comment on above: Performed By: #### C TALISHA, CMP ####[facility] [place], [place] [phone] WBC (Leukocytes) 8.52 10*3/uL Normal 3.70-11.00 [facility] Comment on above: Performed By: #### C TALISHA, CMP ####[facility] [place], [place] [phone] Jamila 03-13-2017 JOCELYNE Office Visit (BILL) JUAN CAMPBELL ([id number]) 1995 FDate Time Provider Department03/13/17 10:20 AM HALEIGH FONSECA During your visit today, we recorded the following information about you: Pulse Blood pressure Weight Height 82/minute 132/84 58.2 kg 1.702 Sharon Fonseca MD 03/13/2017 11:21 AM Arielle Campbell is a 21 year old female who presents for follow up:RHEUM LABSPREVIOUS DIAG JIAINTERVAL HISTORY Since lst visit, doing wellStarted MTX qwkly and feels it is helping.Today no joint pain or stiffnessNo complaints todayNo rash, ulcers, fevers, swollen lymph nodes, DVT/PE, raynauds, sicca symptoms,trouble swallowing, back pain, red eyes, Chron's/UC or Psoriasis.MEDS/THERAPIES TRIED:Started on methotrexate 2009. Later Enbrel prescribed in March 2010. Bothstopped in 2012 as patient was in remissionUltram and motrin the past year?MTX restarted in 2017Ultram prnMotrin prnREVIEW OF SYSTEMSREVIEW OF SYSTEMS: March 13, 2017CONSTITUTIONAL:Fever: NoFatigue: NoPain: NoEYES:Pain: NoRedness: NoLoss of vision: NoDryness: NoEAR, NOSE, MOUTH, THROAT:Nose bleeds: NoHearing loss: NoSores in mouth: NoSwallowing problems: NoDry mouth: NoCARDIOVASCULAR:Chest pain: NoSwelling in the feet or legs: NoRESPIRATORY:Shortness of breath: NoPain with breathing: NoChronic cough: NoCoughing up blood: No,GASTROINTESTINAL:Heart burn: NoNausea: NoDiarrhea: NoBlood in the stool or black stool: NoAbdominal pain: NoGENITOURINARY:Blood in urine: NoPain or burning on urination: No]MUSCULOSKELETAL:Joint pain: YesJoint swelling: YesMorning stiffness in joints: YesMuscle weakness: YesBack pain: YesSKIN:Rashes: NoSun sensitive rashes: NoColor changes of hands or feet in the cold: NoHair loss: NoNail changes: NoNEUROLOGICAL:Headaches: NoDizziness: NoNumbness or tingling: NoMemory loss: NoSeizures: NoHEMATOLOGIC/LYMPHATIC:S wollen glands: NoAnemia: NoALLERGIES/IMMUNOLOGIC:A llergies (other than medications): YesIncreased susceptibility to infection: NoKNOWN MEDICAL CONDITIONS:Diabetes: NoThyroid disease: NoHigh blood pressure: NoPROMIS? (Patient-Reported Outcomes Measurement Information System) is a set ofperson-centered measures that evaluates and monitors physical, social, andemotional health. It can be used with the general population and withindividuals living with chronic conditions.March 13, 2017PROMIS 10: PHYSICAL AND MENTAL HEALTH:Global Physical Health T Score: 47.7Global Physical Health Percentile: 40.9Global Mental Health T Score: 50.8Global Mental Health Percentile: 53.19PROMIS PAIN, FATIGUE, FUNCTIONAL STATUS:PROMIS Pain Interference T Score: 52.25PROMIS Pain Interference Percentile: 40.9PROMIS Fatigue T Score: 47.56PROMIS Fatigue Percentile: 59.48PROMIS Functional Status T Score: 45.65PROMIS Functional Status Percentile: 33RAPID 3: DISEASE ACTIVITY:Weighed Score Levels:0 - 1: Near Remission1.3 - 2.0: Low Severity2.3 - 4.0: Moderate Severity4.3 - 10.0: High SeveritySCORES:RAPID 3 Functional Status Subscore: 0.7RAPID 3 Pain Tolerance Subscore: 3RAPID 3 Global Estimate Subscore: 1RAPID 3 Cumulative Score: 4.7RAPID 3 Weighed Score: 1.6GENERAL: No weight loss, malaise or fevers., SEE HPIHEENT: Negative for frequent or significant headaches, No changes in hearing orvision, no nose bleeds or other nasal problemsRESPIRATORY: Negative for cough, wheezing or shortness of breath.CARDIOVASCULAR: Negative for chest pain, leg swelling or palpitations.GI: Negative for abdominal discomfort, blood in stools or black stools orchange in bowel habitsMUSCULOSKELETAL :see HPISKIN: Negative for lesions, rash, and itching.PSYCH: Negative for sleep disturbance, mood disorder and recent psychosocialstressors.ADAMA RO: No history of headaches, syncope, paralysis, seizures or tremorsAll other reviewed and negative other than HPI.PAST MEDICAL HISTORYDiagnosis Date- Immunosuppressed status (HCC) 04/19/2011- Polyarticular juvenile idiopathic arthritis (HCC) 09/29/2010PAST SURGICAL HISTORYNo date: NONEmethotrexate 2.5 mg tablet Take by mouth one time only.budesonide-formotero l (SYMBICORT) 160-4.5 mcg/actuation inhaler Inhale 2 Puffsas instructed twice daily.ibuprofen (MOTRIN) 800 mg tablet Take 800 mg by mouth twice daily.cetirizine (ZYRTEC) 10 mg tablet Take 10 mg by mouth once daily.DULoxetine (CYMBALTA) 30 mg capsule Take 30 mg by mouth once daily.Methylphenidate (METADATE CD) 40 mg CR capsule Take 40 mg by mouth once daily.NORGESTIMATE-ETHINY L ESTRADIOL (ORTHO-CYCLEN, 28, ORAL) Take by mouth.MULTIVITAMIN TAB Take one(1) tablet daily.FAMILY HISTORY Arthritis Mother Asthma Mother Hypertension Mother Diabetes Mother Psychiatry Mother Comment: depression, anxiety Lipids Mother Hypertension Maternal Grandfather Lipids Maternal Grandfather Hypertension Maternal Grandmother Lipids Maternal Grandmother Psychiatry Maternal Grandmother Comment: depreesion, anxiety Arthritis Maternal Grandmother Hypertension Paternal Grandfather Lipids Paternal Grandfather Hypertension Paternal Grandmother Lipids Paternal GrandmotherSocial History Marital status: Single Spouse name: Years of education: Number of children:Social History Main Topics Smoking status: Never SmokerSocial History Narrative Pt lives at home with mom and dad.BP 132/84 (BP Site: Left Arm, BP Position: Sitting, BP Cuff Size: RegularAdult) Pulse 82 Ht 170.2 cm (5' 7ANDquot;) Wt 58.2 kg (128 lb 3.2 oz) BMI20.08 kg/m2PE; Well built and nourished. Pleasant mood. In no acute distress.Examination of the skin: She has no rashes, ulcers, nodules or tightening ofthe skin.Eyes: Pupils are equal in size and reactive to light. Conjunctivae arenoninjected. Sclerae are anicteric.Ears, Nose, Mouth and Throat: Nasal mucosa and septum appear normal. Teethand gums appear normal. Oropharynx is clear of erythema and exudate. Hearingis grossly normal.Neck: Supple. There is no JVD. Trachea is in the midline. There are nopalpable lymph nodes or scars.Respiratory: Lungs are clear to auscultation bilaterally with no dullness topercussion. There is good air movement in all lung zones.Cardiovascular: Heart rate is regular. Nomurmur or rub is appreciated. Shehas no carotid or abdominal bruits. Pedal pulses are easily palpable. She hasno significant edema or varicosities of his lower extremities.GI: Bowel sounds are present. Abdomen is soft and nontender without reboundor guarding. No mass or organomegaly is noted.Lymphatic: There is no lymphadenopathy in the axillary, epitrochlear or groinregions.Psychiatric: She is alert and oriented. She has good recall of recent andremote events.Neurologic: Cranial nerves II through XII seem grossly intact. Musclestrength and muscle tone seem normal. There is no decreased muscle mass.Musculoskeletal: She has normal gait and station. Her digits and nails appearnormal. All joints were examined and were normal without pain, tenderness,swelling, deformity, deformity/sublaxation, and with full range of motion.MOST RECENT LABS: REVIEWED WITH PATIENTIMP/PLAN: 21 yrs diagnosed with JOSH in November 2009 with polyarticular JOSH.Symptoms at that time- pain in both hips, pain in bilateral knees ankles andwrists. These joints became swollen , red and hot. intially went to Ortho intown for pain in her hips, who ran labs, told her that her sed rate was highand referred her to Rheum- evaluated by Dr Aguirre in Ped Rheum and diangosedwith JOSH. Started on methotrexate. Enbrel prescribed in March 2010. Combinationworked great for years, stopped both meds around 2012 as patient was inremission. Patient did well over the years, last year started motrin 800mg forback pain and then later ultram added last year for resurfacing of knee andback pain.''pain is slowly creeping again in different places''. AT last visit pain resurfaced in low back, lft knee, and rt hipAt last visit, restarted on MTX and since restarting it, she is doing muchbetter. States her joint pains are minimal, no flares since lst visitToday does not have any joint pain or stiffenssCurrently on MTX 6 tabs po qwk, feels this is helping signifcantlyToday no joint pain or stiffnessNo em stiffness- few minutesTakes motrin 800mg po bid prn for painF/U 4months time.Check following:-CBC + AUTO DIFF-COMP METABOLIC PANEL-SED RATE [id number]-[id number] PROTEIN (CRP)Haleigh Fonseca, SUZETTEeferring Provider: SELF [200]Allergies As of Date: 03/13/2017(No Known Allergies)Date Reviewed: 03/13/2017Reviewed by: Aysha May LPN - Fully AssessedReason for Visit: Follow Up [171]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] Other Visit Diagnoses:Pain in joint, multiple sites [M25.50] Joint stiffness [M25.60] Medication monitoring encounter [Z51.81]Order(s):CBC [SQCBC] Order #: [id number] FUTURE COMP METABOLIC PANEL [SQCMP] Order #: [id number] FUTUREPrescriptions as of 03/13/2017 Sig:X METHOTREXATE SODIUM 2.5 MG TA* Take by mouth one time only. BUDESONIDE-FORMOTEROL HFA 160* Inhale 2 Puffs as instructed * IBUPROFEN 800 MG TABLET Take 800 mg by mouth twice da* CETIRIZINE 10 MG TABLET Take 10 mg by mouth once chris* DULOXETINE 30 MG CAPSULE,KHALIDA* Take 30 mg by mouth once chris* METHYLPHENIDATE ER 40 MG MULT* Take 40 mg by mouth once chris* * ORTHO-CYCLEN (28) ORAL Take by mouth. * MULTIVITAMIN TABLET Take one(1) tablet daily.Problem List As Of Date 03/13/2017 Noted Resolved Polyarticular juvenile idiopathic arthritis [M0*INVALID FOR* Immunosuppressed status [D89.9] INVALID FOR* Iron deficiency anemia [D50.9] INVALID FOR* Arm fracture, left [S42.302A] INVALID FOR*Disposition: Return in about 4 months (around 07/14/2017) for RA 20m .Follow-up and Disposition History RecordedEncounter Number: [id number] Status:Closed by HALEIGH FONSECA MD on 03/13/17 Normal [facility] Comp Metabolic Panelon 03-13 Alanine aminotransferase (ALT) 8 U/L Normal 7-38 [facility] Comment on above: Performed By: #### C TALISHA, CMP ####[facility], [place] [phone] Albumin 4.0 g/dL Normal 3.9-4.9 [facility] Comment on above: Performed By: #### C TALISHA, CMP ####[facility] [address], [place] [phone] Alkaline phosphatase (ALP) 54 U/L Normal 32-117 [facility] Comment on above: Performed By: #### C TALISHA, CMP ####[facility] [address]ClevelThomas [place] [phone] Anion gap 14 mmol/L Normal 9-18 [facility] Comment on above: Performed By: #### C BC, CMP ####[facility]Thomas [address] [phone] Aspartate aminotransferase (AST) 14 U/L Normal 13-35 [facility] Comment on above: Performed By: #### C BC, CMP ####[place] [id number]ClevelThomas [place] [phone] Bilirubin (total) 0.4 mg/dL Normal 0.2-1.3 [facility] Comment on above: Performed By: #### C BC, CMP ####[place] [address] [place] [phone] Calcium 9.2 mg/dL Normal 8.5-10.2 [facility] Comment on above: Performed By: #### C BC, CMP ####[facility] [place] [phone] Chloride 102 mmol/L Normal 97-105 [facility] Comment on above: Performed By: #### C BC, CMP ####[place] [address] [address] [place] [phone] CO2 23 mmol/L Normal 22-30 [facility] Comment on above: Performed By: #### C BC, CMP ####[facility]Thomas [place] [phone] Creatinine 0.66 mg/dL Normal 0.58-0.96 [facility] Comment on above: Performed By: #### C BC, CMP ####[facility]levelThomas [place] [phone] eGFR (non-black) mL/min/{1.73_m2} Normal Cl [facility] Comment on above: Performed By: #### C BC, CMP ####[facility], [place] [phone] Result Comment: eGFR (Estimated GFR) Units of measure: mL/min/1.73 meters squaredeGFR is derived from the reexpressed MDRD Study equation using the following parameters: serum creatinine, age, gender and race. The creatinine assay has been calibrated to be traceable to IDMS.An eGFR <60 mL/min/1.73m2 for >3 months is consistent with chronic kidney disease. Refer to KDOQI guidelines for clinical interpretation.In patients with unstable renal function, e.g. those with acute kidney injury, the eGFR may not accurately reflect actual GFR. Glucose mass conc 83 mg/dL Normal 74-99 [facility] Comment on above: Result Comment: The [place] Diabetes Association (ADA) provides guidance for cutoff values for fasting glucose and random glucose. The ADA defines fasting as no caloric intake for at least 8 hours. Fasting plasma glucose results between 100 to 125 mg/dL indicate increased risk for diabetes (prediabetes).Fasting plasma glucose results greater than or equal to 126 mg/dL meet the criteria for diagnosis of diabetes. In the absence of unequivocal hyperglycemia, results should be confirmed by repeat testing. In a patient with classic symptoms of hyperglycemia or hyperglycemic crisis, random plasma glucose results greater than or equal to 200 mg/dL meet the criteria for diagnosis of diabetes.Reference: Standards of Medical Care in Diabetes 2016, [place] Diabetes Association. Diabetes Care. 2016.39(Suppl 1). Performed By: #### C BC, CMP ####[facility], [place] [phone] Potassium molar conc 3.9 mmol/L Normal 3.7-5.1 [facility] Comment on above: Performed By: #### C BC, CMP ####[facility], [place] [phone] Protein 6.1 g/dL Low 6.3-8.0 [facility] Comment on above: Performed By: #### C BC, CMP ####[facility], [place] [phone] Sodium 139 mmol/L Normal 136-144 [facility] Comment on above: Performed By: #### C BC, CMP ####[facility] [address] [place], [place] [phone] Urea nitrogen 13 mg/dL Normal 7-21 [facility] Comment on above: Performed By: #### C BC, CMP ####[facility] [address] [place], [place] [phone] PROGRESSon 03-13-2017 PROGRESS HNO ID: [id number] thor: Haleigh Jackson: (none)Author Type: PhysicianType: Progress NotesFiled: 03/13/2017 11:21 AMNote Text:Juan Campbell is a 21 year old female who presents for follow up:RHEUM LABSPREVIOUS DIAG JIAINTERVAL HISTORY Since lst visit, doing wellStarted MTX qwkly and feels it is helping.Today no joint pain or stiffnessNo complaints todayNo rash, ulcers, fevers, swollen lymph nodes, DVT/PE, raynauds, siccasymptoms,trouble swallowing, back pain, red eyes, Chron's/UC or Psoriasis.MEDS/THERAPIES TRIED:Started on methotrexate 2009. Later Enbrel prescribed in March 2010. Bothstopped in 2012 as patient was in remissionUltram and motrin the past year?MTX restarted in 2016Ultram prnMotrin prnREVIEW OF SYSTEMSREVIEW OF SYSTEMS: March 13, 2017CONSTITUTIONAL:Fever: NoFatigue: NoPain: NoEYES:Pain: NoRedness: NoLoss of vision: NoDryness: NoEAR, NOSE, MOUTH, THROAT:Nose bleeds: NoHearing loss: NoSores in mouth: NoSwallowing problems: NoDry mouth: NoCARDIOVASCULAR:Chest pain: NoSwelling in the feet or legs: NoRESPIRATORY:Shortness of breath: NoPain with breathing: NoChronic cough: NoCoughing up blood: No,GASTROINTESTINAL:Heart burn: NoNausea: NoDiarrhea: NoBlood in the stool or black stool: NoAbdominal pain: NoGENITOURINARY:Blood in urine: NoPain or burning on urination: No]MUSCULOSKELETAL:Joint pain: YesJoint swelling: YesMorning stiffness in joints: YesMuscle weakness: YesBack pain: YesSKIN:Rashes: NoSun sensitive rashes: NoColor changes of hands or feet in the cold: NoHair loss: NoNail changes: NoNEUROLOGICAL:Headaches: NoDizziness: NoNumbness or tingling: NoMemory loss: NoSeizures: NoHEMATOLOGIC/LYMPHATIC:S wollen glands: NoAnemia: NoALLERGIES/IMMUNOLOGIC:A llergies (other than medications): YesIncreased susceptibility to infection: NoKNOWN MEDICAL CONDITIONS:Diabetes: NoThyroid disease: NoHigh blood pressure: NoPROMIS? (Patient-Reported Outcomes Measurement Information System) is aset of person-centered measures that evaluates and monitors physical,social, and emotional health. It can be used with the general populationand with individuals living with chronic conditions.March 13, 2017PROMIS 10: PHYSICAL AND MENTAL HEALTH:Global Physical Health T Score: 47.7Global Physical Health Percentile: 40.9Global Mental Health T Score: 50.8Global Mental Health Percentile: 53.19PROMIS PAIN, FATIGUE, FUNCTIONAL STATUS:PROMIS Pain Interference T Score: 52.25PROMIS Pain Interference Percentile: 40.9PROMIS Fatigue T Score: 47.56PROMIS Fatigue Percentile: 59.48PROMIS Functional Status T Score: 45.65PROMIS Functional Status Percentile: 33RAPID 3: DISEASE ACTIVITY:Weighed Score Levels:0 - 1: Near Remission1.3 - 2.0: Low Severity2.3 - 4.0: Moderate Severity4.3 - 10.0: High SeveritySCORES:RAPID 3 Functional Status Subscore: 0.7RAPID 3 Pain Tolerance Subscore: 3RAPID 3 Global Estimate Subscore: 1RAPID 3 Cumulative Score: 4.7RAPID 3 Weighed Score: 1.6GENERAL: No weight loss, malaise or fevers., SEE HPIHEENT: Negative for frequent or significant headaches, No changes inhearing or vision, no nose bleeds or other nasal problemsRESPIRATORY: Negative for cough, wheezing or shortness of breath.CARDIOVASCULAR: Negative for chest pain, leg swelling or palpitations.GI: Negative for abdominal discomfort, blood in stools or black stools orchange in bowel habitsMUSCULOSKELETAL :see HPISKIN: Negative for lesions, rash, and itching.PSYCH: Negative for sleep disturbance, mood disorder and recentpsychosocial stressors.NEURO: No history of headaches, syncope, paralysis, seizures or tremorsAll other reviewed and negative other than HPI.PAST MEDICAL HISTORYDiagnosis Date- Immunosuppressed status (HCC) 04/19/2011- Polyarticular juvenile idiopathic arthritis (HCC) 09/29/2010PAST SURGICAL HISTORYNo date: NONEmethotrexate 2.5 mg tablet Take by mouth one time only.budesonide-formotero l (SYMBICORT) 160-4.5 mcg/actuation inhaler Inhale 2Puffs as instructed twice daily.ibuprofen (MOTRIN) 800 mg tablet Take 800 mg by mouth twice daily.cetirizine (ZYRTEC) 10 mg tablet Take 10 mg by mouth once daily.DULoxetine (CYMBALTA) 30 mg capsule Take 30 mg by mouth once daily.Methylphenidate (METADATE CD) 40 mg CR capsule Take 40 mg by mouth oncedaily.NORGESTIMATE-ET HINYL ESTRADIOL (ORTHO-CYCLEN, 28, ORAL) Take by mouth.MULTIVITAMIN TAB Take one(1) tablet daily.FAMILY HISTORY Arthritis Mother Asthma Mother Hypertension Mother Diabetes Mother Psychiatry Mother Comment: depression, anxiety Lipids Mother Hypertension Maternal Grandfather Lipids Maternal Grandfather Hypertension Maternal Grandmother Lipids Maternal Grandmother Psychiatry Maternal Grandmother Comment: depreesion, anxiety Arthritis Maternal Grandmother Hypertension Paternal Grandfather Lipids Paternal Grandfather Hypertension Paternal Grandmother Lipids Paternal GrandmotherSocial History Marital status: Single Spouse name: Years of education: Number of children:Social History Main Topics Smoking status: Never SmokerSocial History Narrative Pt lives at home with mom and dad.BP 132/84 (BP Site: Left Arm, BP Position: Sitting, BP Cuff Size: RegularAdult) Pulse 82 Ht 170.2 cm (5' 7 ) Wt 58.2 kg (128 lb 3.2 oz) BMI20.08 kg/m2PE; Well built and nourished. Pleasant mood. In no acute distress.Examination of the skin: She has no rashes, ulcers, nodules or tighteningof the skin.Eyes: Pupils are equal in size and reactive to light. Conjunctivae arenoninjected. Sclerae are anicteric.Ears, Nose, Mouth and Throat: Nasal mucosa and septum appear normal.Teeth and gums appear normal. Oropharynx is clear of erythema andexudate. Hearing is grossly normal.Neck: Supple. There is no JVD. Trachea is in the midline. There are nopalpable lymph nodes or scars.Respiratory: Lungs are clear to auscultation bilaterally with no dullnessto percussion. There is good air movement in all lung zones.Cardiovascular: Heart rate is regular. Nomurmur or rub is appreciated.She has no carotid or abdominal bruits. Pedal pulses are easily palpable. She has no significant edema or varicosities of his lower extremities.GI: Bowel sounds are present. Abdomen is soft and nontender withoutrebound or guarding. No mass or organomegaly is noted.Lymphatic: There is no lymphadenopathy in the axillary, epitrochlear orgroin regions.Psychiatric: She is alert and oriented. She has good recall of recentand remote events.Neurologic: Cranial nerves II through XII seem grossly intact. Musclestrength and muscle tone seem normal. There is no decreased muscle mass.Musculoskeletal: She has normal gait and station. Her digits and nailsappear normal. All joints were examined and were normal without pain,tenderness, swelling, deformity, deformity/sublaxation, and with fullrange of motion.MOST RECENT LABS: REVIEWED WITH PATIENTIMP/PLAN: 21 yrs diagnosed with JOSH in November 2009 with polyarticular JOSH.Symptoms at that time- pain in both hips, pain in bilateral knees anklesand wrists. These joints became swollen , red and hot. intially went toOrtho in town for pain in her hips, who ran labs, told her that her sedrate was high and referred her to Rheum- evaluated by [facility]irre in [facility] and diangosed with JOSH. Started on methotrexate. Enbrel prescribedin March 2010. Combination worked great for years, stopped both meds [id number] as patient was in remission. Patient did well over the years, lastyear started motrin 800mg for back pain and then later ultram added lastyear for resurfacing of knee and back pain.''pain is slowly creeping again in different places''. AT last visit pain resurfaced in low back, lft knee, and rt hipAt last visit, restarted on MTX and since restarting it, she is doing muchbetter. States her joint pains are minimal, no flares since lst visitToday does not have any joint pain or stiffenssCurrently on MTX 6 tabs po qwk, feels this is helping signifcantlyToday no joint pain or stiffnessNo em stiffness- few minutesTakes motrin 800mg po bid prn for painF/U 4months time.Check following:-CBC + AUTO DIFF-COMP METABOLIC PANEL-SED RATE [id number] PROTEIN (CRP)Haleigh Fonseca MD Normal [facility] OBSOLETEon 03-10-2017 OBSOLETE Refill (RHEUAV) JUAN CAMPBELL ([id number]) 1995 [facility] Time Provider Department03/10/17 HALEIGH FONSECA During your visit today, we recorded the following information about you:Margarita Gonzalez MA 03/10/2017 10:32 AM SignedPharmacy electronically requests the following refillPending Prescriptions Disp Refills METHOTREXATE SODIUM 2.5 MG TABLET 24 tablet 3 Sig: take 4 tablets by mouth every week for 2 weeks then take 6 tabletsevery week LUIS: YesLOV 11/09/2016NOV 03/13/2017Component Latest Ref Rng ANDamp; Units 11/09/2016Protein, Total 6.3 - 8.0 g/dL 6.1 (L)Albumin 3.9 - 4.9 g/dL 4.5Calcium 8.5 - 10.2 mg/dL 10.0Bilirubin, Total 0.2 - 1.3 mg/dL 0.3Alkaline Phosphatase 32 - 117 U/L 67AST 13 - 35 U/L 24Glucose 74 - 99 mg/dL 85BUN 7 - 21 mg/dL 7Creatinine 0.58 - 0.96 mg/dL 0.60Sodium 136 - 144 mmol/L 138Potassium 3.7 - 5.1 mmol/L 4.6Chloride 97 - 105 mmol/L 98CO2 22 - 30 mmol/L 27Anion Gap 9 - 18 mmol/L 13ALT 7 - 38 U/L 10eGFR- ANDgt;60eGFR-All Other Races . ANDgt;60WBC 3.70 - 11.00 k/uL 8.90RBC 3.90 - 5.20 m/uL 4.78Hemoglobin 11.5 - 15.5 g/dL 13.9Hematocrit 36.0 - 46.0 % 42.1MCV 80.0 - 100.0 fL 88.1MCH 26.0 - 34.0 pG 29.1MCHC 30.5 - 36.0 g/dL 33.0RDW-CV 11.5 - 15.0 % 13.0Platelet Count 150 - 400 k/uL 392MPV 9.0 - 12.7 fL 9.8TB Result Negative NegativeTB Antigen Response ANDlt;0.35 IU/mL 0.00Mitogen Response ANDgt;0.49 IU/mL ANDgt;10.00TB Gamma Interpretation No evidence of current or previous infection withMycobacterium tuberculosis.Hep B Core Ab, Total Negative NegativeHep C Antibody IA Negative NegativeHep B Surface Ag Negative NegativeHep B Surface Ab, Qual Negative NegativeANA Negative NegativeANA Titer Negative NegativeANA Pattern Not applicable for negative result.VITOR by EIA, Qual Negative Positive (A)VITOR by EIA OD Ratio 2.4WSR 0 - 20 mm/hr 5CRP ANDlt;0.9 mg/dL 0.1Rheumatoid Factor ANDlt;16 IU/mL ANDlt;10CCP Antibody, IgG ANDlt;20 Units ANDlt;15HLA B27 Negative NegativeViola Carlos Fonseca MD 03/13/2017 11:13 AM SignedThe following approved medication requests have been transmitted electronically.Signed Prescriptions Disp Refills methotrexate 2.5 mg tablet 24 tablet 3 Sig: Take 6 tabs po qwk LUIS: No Authorizing Provider: HALIEGH FONSECA MDAllergies As of Date: 03/10/2017(No Known Allergies)Date Reviewed: 11/09/2016Reviewed by: Aysha May LPN - Fully AssessedReason for Visit: Refill Request [94]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] Other Visit Diagnosis:Medication monitoring encounter [Z51.81]Order(s):methotre xate 2.5 mg tabletTake 6 tabs po qwkDisp: 24 tabletRfl: 3Prescriptions as of 03/10/2017 Sig: METHOTREXATE SODIUM 2.5 MG TA* Take 6 tabs po qwk BUDESONIDE-FORMOTEROL HFA 160* Inhale 2 Puffs as instructed * IBUPROFEN 800 MG TABLET Take 800 mg by mouth twice da* CETIRIZINE 10 MG TABLET Take 10 mg by mouth once chris* DULOXETINE 30 MG CAPSULE,KHALIDA* Take 30 mg by mouth once chris* METHYLPHENIDATE ER 40 MG MULT* Take 40 mg by mouth once chris* * ORTHO-CYCLEN (28) ORAL Take by mouth. * MULTIVITAMIN TABLET Take one(1) tablet daily.Problem List As Of Date 03/10/2017 Noted Resolved Polyarticular juvenile idiopathic arthritis [M0*INVALID FOR* Immunosuppressed status [D89.9] INVALID FOR* Iron deficiency anemia [D50.9] INVALID FOR* Arm fracture, left [S42.302A] INVALID FOR*Prescriptions ordered this encounter Disp Refills Start End METHOTREXATE SODIUM 2.5 MG TABLET 24 t* 3 03/13/2017 Sig: Take 6 tabs po qwkMedications Discontinued During This Encounter methotrexate 2.5 mg tablet 03/13/2017 Class: Historical Med Route: ORAL Sig: Take by mouth one time only. Disc: Reason for discontinue is not on file. Status:Closed by HALEIGH FONSECA MD on 03/13/17 Normal [facility] Encounters Encounter Date Encounter Type Care Provider Facility Start: 10-03-2023 End: 10-04-2023 ambulatory LEONCIO LOZADA Not Available Start: 08-01-2023 End: 08-02-2023 ambulatory LEONCIO LOZADA Not Available Start: 07-12-2023 End: 07-13-2023 ambulatory LEONCIO LOZADA Not Available Start: 09-06-2017 End: 09-06-2017 Ambulatory HALEIGH FONSECA [facility] Start: 05-09-2017 End: 05-10-2017 Ambulatory Adi Boyd Facility:[facility] Start: 04-13-2017 End: 04-13-2017 Ambulatory ADI BOYD Facility: Start: 04-10-2017 End: 04-11-2017 Ambulatory ADI BOYD Facility:[facility] Start: 04-10-2017 End: 04-11-2017 Ambulatory MIKE ANDERS Facility:[facility] Start: 03-13-2017 End: 03-13-2017 Ambulatory HALEIGH Anguiano RAYMUNDO [facility] Start: 03-13-2017 End: 03-13-2017 Ambulatory HALEIGH Anguiano [facility] Payers Date Payer Category Payer Unknown [id number] 2017 Unknown 1995 Unknown [id number] 1996 Unknown [id number] 1996 Unknown [id number] 1959 Unknown [id number] Clinical Note 10-18-2021 Note Date & Type Note Facility 10-18-2021 Note FINDINGS: Comparison made with prior ultrasound evaluation of August 02, 2021. A single, live intrauterine is present with normal cardiac rate of 145 beats per minute. Normal activity and amniotic fluid volume. Amniotic fluid index is 17 cm. Morphology is grossly normal. The cervix is long and closed, 3.9 cm. The placenta is anterior, not associated with the cervical os. The current sonographic age is 29 weeks and 2 days, based on the following measurements: BPD 7.2 cm (28 weeks, 6 days) Head Circumference 26.1 cm (28 weeks, 3 days) Abdominal Circumference 26.4 cm (30 weeks, 3 days) Femur Length 5.6 cm (29 weeks, 3 days) Presentation Cephalic Placenta Anterior Grade I Weight (g) by Zlqsstxepp64.1 % * (prior These measurements result in an estimated date of delivery of January 01, 2022 The current estimated weight is 1458 grams (3 pounds, 3 ounces). IMPRESSION: 1. Single, live intrauterine , current sonographic age of 29 weeks and 2 days, with an estimated date of delivery of January 01, 2022 (prior SLOANE December 25, 2021) 2. Current estimated weight 1458 grams (3 pounds, 3 ounces), percentile growth 17.1% (prior percentile growth on the August 02, 2021 exam not performed). * Estimated Weight (g) by Percentile is based upon an accurate estimated age based on last menstrual period. 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 Summary Purpose Family History No Family History Records FoundNo Family History Records FoundNo Family History Records FoundNo Family History Records FoundNo Family History Records FoundNo Family History Records Found Advance Directives No Advanced Directives Records FoundNo Advanced Directives Records FoundNo Advanced Directives Records FoundNo Advanced Directives Records FoundNo Advanced Directives Records FoundNo Advanced Directives Records Found Additional Source Comments INFORMATION SOURCE (unrecogn ized section and content) DATE CREATED AUTHOR 02/27/2018 [facility] DATE CREATED AUTHOR AUTHOR'S ORGANIZ ATION 02/28/2018 [facility] DATE CREATED AUTHOR AUTHOR'S ORGANIZ ATION 02/28/2018 [facility] DATE CREATED AUTHOR AUTHOR'S ORGANIZ ATION 03/28/2020 [facility] DATE CREATED AUTHOR AUTHOR'S ORGANIZ ATION 10/19/2021 [facility] DATE CREATED AUTHOR AUTHOR'S ORGANIZ ATION 10/08/2023 [facility] FOR RECORDS PERTAINING TO PATIENTS WHO ARE OR HAVE BEEN ENROLLED IN A CHEMICAL DEPENDENCY/SUBSTANCEABUSE PROGRAM, SOME INFORMATION MAY BE OMITTED. This clinical summary was aggregated from multiple sources. Caution should be exercised in using it in the provision of clinical care. This summary normalizes information from multiple sources, and as a consequence, information in this document may materially change the coding, format and clinical context of patient data. In addition, data may be omitted in some cases. CLINICAL DECISIONS SHOULD BE BASED ON THE PRIMARY CLINICAL RECORDS. [facility] [employer] provides no warranty or guarantee of the accuracy or completeness of information in this document.
--- OUTSIDE RECORDS SUMMARY | 2023-11-10 11:52 | XMS_ITS | CCD ---
Author Name Unknown Address [address] [place] [address] Organization [facility] Care Team Providers Care Compressor Station Chief Engineer Name Role Phone RAYMUNDO, HALEIGH P Unavailable [...] HYDROcodone; Translations: [HYDROCODONE-ACET AMINOPHEN] Drug Allergy AOF [facility] Repository (1 source) NO KNOWN ALLERGIES; Translations: [NO KNOWN ALLERGIES] Propensity to adverse reactions to drug (disorder) [facility] Repository (2 sources) acetaminophen / HYDROcodone; Translations: [Vicodin] Drug Allergy 4 AOF [facility] Repository Problems Active Problems Problem Classification [...] trevizo 10-14-2021 FGLU 79 mg/dL Normal 65-99 [facility] Pie Topper Comment on above: Result Comment: Acco rding to ADA: Fasting Glucoe Normal 65-99 mg/dl Prediabetes 100-125 mg/dl Diabetes >/= 126 Performed By: #### G TT3H #### [facility] [address] [place], [place] [id number] GLU1H 136 mg/dL Normal [facility] Specialist Comment on above: Performed By: #### G TT3H #### [facility] [address] [place], [place] [id number] GLU2H 130 mg/dL Normal [facility] Specialist Comment on above: Performed By: #### G TT3H #### [facility] [address] [place], [place] [id number] GLU3H 114 mg/dL Normal [facility] Specialist Comment on above: Performed By: #### G TT3H #### [facility] [address] [place], [place] [id number] Complete Blood Counton 10-01 Erythrocyte distribution width (RBC) [Ratio] 12.9 % Normal 11.0-15.0 [facility] Specialist Comment on above: Performed By: #### LUCIANO ZAMORA #### [facility] [address] [place], [place] [id number] Hematocrit (Bld) [Volume fraction] 32.5 % Low 35.0-47.0 [facility] Specialist Comment on above: Performed By: #### LUCIANO ZAMORA #### [facility] [address] [place], [place] [id number] Hemoglobin (Bld) [Mass/Vol] 10.8 g/dL Low 11.6-15.5 [facility] Specialist Comment on above: Performed By: #### LUCIANO ZAMORA #### [facility] [address] [place], [place] [id number] MCH (RBC) [Entitic mass] 29.3 pg Normal 27.0-33.0 [facility] Specialist Comment on above: Performed By: #### LUCIANO ZAMORA #### [facility] [address] [place], [place] [id number] MCHC (RBC) [Mass/Vol] 33.2 g/dL Normal 32.0-36.0 [facility] Specialist Comment on above: Performed By: #### LUCIANO ZAMORA #### [facility] [address] [place], [place] [id number] MCV (RBC) [Entitic vol] 88 fL Normal 80-100 [facility] Specialist Comment on above: Performed By: #### LUCIANO ZAMORA #### [facility] [address] [place], [place] [id number] Platelet mean volume (Bld) [Entitic vol] 10.00 fL Normal 7.50-12.50 [facility] Comment on above: Performed By: #### Amina WOODALL GGKRISTEN #### [facility] [address] [place], [place] [id number] Platelets (Bld) [#/Vol] 254 10*3/uL Normal 140-400 [facility] Comment on above: Performed By: #### Amina WOODALL GGLU #### [facility] [address] [place], [place] [id number] RBC (Bld) [#/Vol] 3.69 10*6/uL Low 3.90-5.20 [facility] Comment on above: Performed By: #### Amina WOODALL GGKRISTEN #### [facility] [address] [place], [place] [id number] RDW-SD 41.8 fL Normal 37.0-50.0 [facility] Comment on above: Performed By: #### Amina WOODALL GGLU #### [facility] [address] [place], [place] [id number] WBC (Bld) [#/Vol] 15.2 10*3/uL High 3.8-11.0 [facility] Comment on above: Performed By: #### Amina WOODALL GGLU #### [facility] [address] [place], [place] [id number] Glucose - Gestational Screen on 10-01-2021 Glucose [Mass/Vol] 156 mg/dL High <135 [facility] Comment on above: Result Comment: A va lue of 135 mg/dL or greater indicates the need for a full glucose tolerance test performed in the fasting state to determine if the patient has gestational diabetes. Performed By: #### Amina WOODALL GGLU #### [facility] [address] [place], [place] [id number] THINPREP TIS PAP REFLEX HPV mRNA E6/E7on 03-24-2020 CLINICAL INFORMATION: Normal [facility] Comment on above: Result Comment: None given Performed By: #### 9 0934 #### [facility]-[address] [place] [address] Pot Tender: Storm Jimenez MD COMMENT Normal [facility] [...] INCORRECT, PLEASE CONTACT CLIENT SERVICES. PHONE NUMBER: [phone] Performed By: #### 9 0934 #### [facility]-[address], [address] [place] [address] Pot Tender: Storm Jimenez MD COMMENT: Normal [facility] Comment on above: Result Comment: This Pap test has been evaluated with computer assisted technology. 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 Performed By: #### 9 0934 #### [facility]-[address], [address] [place] [address] Pot Tender: Storm Jimenez MD INTERPRETATION/RESU LT: Normal [facility] Comment on above: Result Comment: Nega tive for intraepithelial lesion or malignancy. Performed By: #### 9 0934 #### [facility]-[address], [address] [place], [place] [id number] Pot Tender: Storm Jimenez MD LMP: Normal [facility] Comment on above: Result Comment: None given Performed By: #### 9 0934 #### [facility]-[address], [address] [place] [address] Pot Tender: Storm Jimenez MD PREV. BX: None given Normal [facility] Comment on above: Performed By: #### 9 0934 #### [facility]-[address], [address] [place], [place] [id number] Pot Tender: Storm Jimenez MD PREV. PAP: Normal [facility] Comment on above: Result Comment: None given Performed By: #### 9 0934 #### [facility]-[address], [address] [place], [place] [phone] Pot Tender: Storm Jimenez MD SOURCE: Normal [facility] Comment on above: Result Comment: None given Performed By: #### 9 0934 #### [facility]-[address], [address] [place], [place] [id number] Pot Tender: Storm Jimenez MD STATEMENT OF ADEQUACY: Normal [facility] Comment on above: Result Comment: Sati sfactory for evaluation. Endocervical/transformation zone component absent. Performed By: #### 9 0934 #### [facility]-[address], [address] [place] [address] Pot Tender: Storm Jimenez MD Lois 09-06-2017 Alanine aminotransferase (ALT) 11 U/L Normal 7-38 [facility] Comment on above: Performed By: #### C BC, ALT, AST, RFP ####[facility] [place], [place] [phone] Mary 09-06-2017 Aspartate aminotransferase (AST) 16 U/L Normal 13-35 [facility] Comment on above: Performed By: #### C BC, ALT, AST, RFP ####[facility] [address] [place], [place] [phone] CBCon 09-06-2017 Erythrocyte distribution width Auto Ratio (RBC) 12.7 % Normal 11.5-15.0 [facility] Comment on above: Performed By: #### C BC, ALT, AST, RFP ####[facility] [place], [place] [phone] Erythrocytes (RBC) 4.33 10*6/uL Normal 3.90-5.20 [facility] [place] [facility] Comment on above: Performed By: #### C BC, ALT, AST, RFP ####[place] [address] [place] [phone] Erythrocytes (RBC) 10*6/uL Normal <0.01 [facility] Comment on above: Performed By: #### C BC, ALT, AST, RFP ####[place] [address] [phone] Hematocrit (HCT) 38.0 % Normal 36.0-46.0 [facility] Comment on above: Performed By: #### C BC, ALT, AST, RFP ####[place] [address] [place] [phone] Hemoglobin mass conc (Bld) 12.9 g/dL Normal 11.5-15.5 [facility] Comment on above: Performed By: #### C BC, ALT, AST, RFP ####[place] [address] [place] [phone] MCH 29.8 pG Normal 26.0-34.0 [facility] Comment on above: Performed By: #### C BC, ALT, AST, RFP ####[place] [address] [phone] MCHC mass conc (RBC) 33.9 g/dL Normal 30.5-36.0 [facility] Comment on above: Performed By: #### C BC, ALT, AST, RFP ####[place] [address] [phone] MCV 87.8 fL Normal 80.0-100.0 [facility] Comment on above: Performed By: #### C BC, ALT, AST, RFP ####[place] [address] [phone] Platelet mean volume (PMV) 10.0 fL Normal 9.0-12.7 [facility] Comment on above: Performed By: #### C BC, ALT, AST, RFP ####[facility] [address], [place] [phone] Platelets 332 10*3/uL Normal 150-400 [facility] Comment on above: Performed By: #### C BC, ALT, AST, RFP ####[facility] [address], [place] [phone] WBC (Leukocytes) 6.98 10*3/uL Normal 3.70-11.00 [facility] Comment on above: Performed By: #### C BC, ALT, AST, RFP ####[facility] [address], [place] [phone] CNOVon 09-06-2017 CNOV Office Visit (BILL) JUAN CAMPBELL ([id number]) 1995 [facility] Time Provider Department09/06/17 10:00 AM HALEIGH FONSECA [...] than HPI.PAST MEDICAL HISTORYDiagnosis Date- Immunosuppressed status ([facility]) 04/19/2011- Polyarticular juvenile idiopathic arthritis ([facility]) 09/29/2010PAST SURGICAL HISTORYProcedure Laterality Date- NONEfolic acid [...] following:-CBC + AUTO DIFF-COMP METABOLIC PANEL-SED RATE [id number]-A-[id number] PROTEIN (CRP)Haleigh Fonseca, SUZETTEeferring Provider: HALEIGH FONSECA [[id number]]Allergies As of Date: 09/06/2017 Noted Allergy ReactionHYDROCODONE-ACETA [...] tabletRfl: 3 AST/SGOT BLD [SQAST] Order #: [id number] FUTURE ALT/SGPT [SQALT] Order #: [id number] FUTURE CBC [SQCBC] Order #: [id number] FUTURE RENAL FUNCTION PANEL [SQRFP] Order #: [id number] FUTUREPrescriptions as of 09/06/2017 Sig: METHOTREXATE SODIUM [...] 20m .Follow-up and Disposition History RecordedEncounter Number: [id number] Status:Closed by HALEIGH FONSECA MD on 09/06/17 Normal [facility] PROGRESSon 09-06-2017 PROGRESS HNO ID: [id number] thor: Haleigh Jackson: (none)Author Type: PhysicianType: Progress [...] than HPI.PAST MEDICAL HISTORYDiagnosis Date- Immunosuppressed status ([facility]) 04/19/2011- Polyarticular juvenile idiopathic arthritis (HCC) 09/29/2010PAST [...] to Rheum- evaluated by Dr Aguir[place] in [facility] and diangosed with JOSH. Started on methotrexate. Enbrel prescribedin March 2010. Combination worked great for years, stopped both meds ddayww1915 as patient was in remission. Patient did [...] following:-CBC + AUTO DIFF-COMP METABOLIC PANEL-SED RATE [id number]-U-[id number] PROTEIN (CRP)Haleigh Fonseca MD Normal [facility] Renal Function Panelon 09-06 Albumin 4.4 g/dL Normal 3.9-4.9 [facility] Comment on above: Performed By: #### C BC, ALT, AST, RFP ####[facility] [phone] Anion gap 14 mmol/L Normal 9-18 [facility] Comment on above: Performed By: #### C BC, ALT, AST, RFP ####[place] [id number] [place] [phone] Calcium 9.5 mg/dL Normal 8.5-10.2 [facility] Comment on above: Performed By: #### C BC, ALT, AST, RFP ####[facility] [place] [phone] Chloride 100 mmol/L Normal 97-105 [facility] Comment on above: Performed By: #### C BC, ALT, AST, RFP ####[facility] [place] [phone] CO2 24 mmol/L Normal 22-30 [facility] Comment on above: Performed By: #### C BC, ALT, AST, RFP ####[facility] [place] [phone] Creatinine 0.64 mg/dL Normal 0.58-0.96 [facility] Comment on above: Performed By: #### C BC, ALT, AST, RFP ####[place] [address] [place] [phone] eGFR (non-black) mL/min/{1.73_m2} Normal [facility] Comment on above: Result Comment: eGFR [...] By: #### C BC, ALT, AST, RFP ####[facility] [place], [place] [phone] Glucose mass conc 90 mg/dL Normal 74-99 [facility] Comment on above: Result Comment: The Stateless Diabetes Association (ADA) provides guidance for cutoff [...] Standards of Medical Care in Diabetes 2016, Stateless Diabetes Association. Diabetes Care. 2016.39(Suppl 1). Performed By: #### C BC, ALT, AST, RFP ####[facility], [place] [phone] Phosphate 3.4 mg/dL Normal 2.7-4.8 [facility] Comment on above: Performed By: #### C BC, ALT, AST, RFP ####[address] [phone] Potassium molar conc 4.5 mmol/L Normal 3.7-5.1 [facility] Comment on above: Performed By: #### C BC, ALT, AST, RFP ####[facility] [place], [place] [phone] Sodium 138 mmol/L Normal 136-144 [facility] Comment on above: Performed By: #### C BC, ALT, AST, RFP ####[facility] [address] [place], [place] [phone] Urea nitrogen 8 mg/dL Normal 7-21 [facility] Comment on above: Performed By: #### C BC, ALT, AST, RFP ####[facility] [address] [place], [place] [phone] Coding Summary.on 05-11-2017 Coding Summary. 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 However, the narrative phrase printed from the coding software may appear abbreviated, or result in slightly different terminology. Coded By: Ngoc Choi Date Saved: 05/11/2017 09:00 am Normal [facility] Coding Summary. 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 However, the narrative phrase printed from the coding software may appear abbreviated, or result in slightly different terminology. Coded By: Ngoc Choi Date Saved: 05/11/2017 08:35 am Normal [facility] Main OR Intraoperative Recor don 05-09-2017 Main OR Intraoperative Record IntraOp Document Type FTURO Summary Primary Physician: Adi Boyd MD Finalized Date/Time: 05/09/17 07:53:22 Pt. Name: BOSSMAN CAMPBELLTONNY Singh/Sex: 1995 Female Med Rec #: [id number] Physician: Adi Boyd MD Financial #: [id number] Pt. Type: O Room/Bed: / Admit/Disch: 05/09/17 07:08:59 - Institution: Case Times FTURO Entry 1 Patient Times In Room 05/09/17 07:40:00 Out Room 05/09/17 07:58:00 Procedure Times Start 05/09/17 07:45:00 Stop 05/09/17 07:52:00 Anesthesia Times Last Modified By: Bob PERRY, TONYOR, Adelina 05/09/17 07:53:11 Case Attendance FTURO Entry 1 Entry 2 Entry 3 Case Attendee Deb OLIVER, Adi Field PARAFFIN MACHINE OPERATOR, Consuelo Rojas RN, TONYOR, Adelina Role Performed Surgeon - Primary Scrub - Primary Support Technician - Primary Time In 05/09/17 07:40:00 05/09/17 [...] OLIVER, Adi Marvin, Verified (If Medication Participants [facility] CenterCons[facility], Applicable) MARGARITO Rojas RN, Ruthann Time Out [...] MARGARITO Rojas RN, Ruthann 05/09/17 07:53 Normal [facility] Main OR Preoperative Recordo n 05-09-2017 Main OR Preoperative Record Holding Area Document Type FTURO Summary Primary Physician: Adi Boyd MD Finalized Date/Time: 05/09/17 07:45:13 Pt. Name: JUAN CAMPBELL /Sex: 1995 Female Med Rec #: [id number] Physician: Adi Boyd MD Financial #: [id number] Pt. Type: O Room/Bed: / Admit/Disch: 05/09/17 [...] No Comment: belly ring Skin Integrity Intact, [place], Warm, & Dry Vitals - EU Blood Pressure 126/87 Pulse 88 bpm Respirations 18 br/min SPO2 RN Reviewed Yes Last Modified By: MARGARITO Rojas RN, Ruthann 05/09/17 07:45:09 Finalized By: MARGARITO Rojas RN, Ruthann Document Signatures Signed By: Arlet Rios LPN 05/09/17 07:20 MARGARITO Rojas RN, Ruthann 05/09/17 07:45 Normal [facility] Operative Reporton 7 Operative Report Patient: AMPARO CAMPBELL Age: 22 years Sex: Female : 1995 Associated Diagnoses: None Author: Adi Boyd MD Procedure Operative Information Details: Date/ Time: [...] well and was subsequently discharged home. Normal [facility] Comment on above: Result Comment: Elec tronically Signed By: Adi Boyd MD\.br\Date and Time Signed: 05/09/17 07:57 EDT CALCULI URINARYon 04-18-2017 CSNOTE (NOTE) Normal [facility] Comment on above: Result Comment: Calc ulus Color: BEIGECalculus Size & Weight: MULTIPLE PIECES, 0.0702 GRAMSComposition: CALCIUM PHOSPHATE - 80% MINOR COMPONENTS - 20%This test was developed and its performance characteristicsdetermined by the [facility] Francisco Hoyt [facility][Note 2]sari Pathology andLaboratory Medicine [place] ([facility]).It has not been cleared or approved by the FDA.[facility] is regulated under CLIA as qualified to performhigh-complexity testing.This test is used for clinical purposes. It should not be regarded asinvestigational or for research. Test Performed By: [facility] [address] [place] [address] Collar Trimmer: Linda Belcher MD, PhD Performed By: #### C ####[facility] [address] [place] [address] Desiree CSTYPE KIDNEY Normal [facility] Comment on above: Performed By: #### C ####[facility] [address] [place], [place] [address]FfdvhbBrayden Ramírez OPERATIVE NOTEon 04-13-2017 OPERATIVE NOTE OPERATIVE NOTEOPERAT ION DATE: 4-17-01MPLHXMWANS:General .PREOPERATIVE DIAGNOSIS:Left distal ureteral calculus.POSTOPERATIVE DIAGNOSIS:Impacted left distal ureteral calculus and left distalureteral structure.PROCEDURE NAME:1. Left ureteral ESWL.2. Cystoscopy.3. Rigid ureteral dilation of ureteral stricture.4. Ureteroscopy.5. Holmium laser lithotripsy of large ureteral calculus.6. Basket extraction of ureteral calculus.7. Left stent placement 6 Romanian variable length.COMPLICATIONS: None.ICD-10 CODE:N20.1INDICATIONS: Juan is a [...] fashion. I started by passing a 22 Romanian Olympuscystoscope per urethrum and into the bladder. [...] distal left ureter withan 8 and 10 Romanian dilator. The ureter was strictured and the [...] into the bladderand then slid a 6 Romanian variable length stent over the wire up into the kidney. The wire was removed and there were good curls in the kidney and the bladder.We then used the [employer] evacuator to irrigate out all of the stones and thesewere sent for analysis. The bladder was drained of its contents and the scopewas then removed.She was then transferred to a [facility] bed and wheeled to the Recovery Room instable condition after the anesthetic was reversed. She will be discharged topapaaloa later today with a script for Keflex 500 mg daily #30 and Ditropan XL 10mg daily #30. We till get her stent out in about 3-4 weeks. Normal [facility] PREG HCG QUALon 04-13-2017 , QUAL Negative Normal NEGATIVE [facility] Comment on above: Performed By: #### P REG ####[facility] [address] Desiree XR KUB 1 VIEWon 04-13-2017 XR KUB 1 VIEW [address] [place] [address] Patient: JUAN CAMPBELL Exam Date: 04/13/2017DOB: 1995 Gender:F : DR ADI BOYD . Admission #: [id number] : Order #: [id number] HERE TO VIEW EXAM RADIOLOGY REPORT PROCEDURE: [...] M.D. on 04/13/2017 at 09:07 Normal [facility] CBC AUTO DIFFon 04-10-2017 Basophils Auto #/vol (Bld) 0.1 103/ul Normal 0.0-0.1 [facility] Comment on above: Performed By: #### C BC ####[facility] [address] [place] [id number] Desiree Basophils/100 WBC Auto (Bld) 0.5 % Normal 0.2-2.0 [facility] Comment on above: Performed By: #### C BC ####[facility] [address] [place], [place] [address]Vidyyu Desiree Eosinophils 0.0 103/ul Normal 0.0-0.7 [facility] Comment on above: Performed By: #### C BC ####[facility] [address] [place] [address]Gerken Desiree Eosinophils/100 leukocytes 0.3 % Critically low 0.9-7.0 [facility] Comment on above: Performed By: #### C BC ####[facility] [address] Des[place]e Erythrocyte distribution width Auto Ratio (RBC) 12.7 % Normal 11.0-15.0 [facility] Comment on above: Performed By: #### C BC ####[facility] Urkijiwxpf[address] Des[place]e Erythrocytes (RBC) 4.47 106/ul Normal 4.20-5.40 [facility] Comment on above: Performed By: #### C BC ####[facility] [address] Des[place]e Hematocrit (HCT) 38.8 % Normal 36.0-48.[address] [facility] Comment on above: Performed By: #### C BC ####[facility] X[address]wsrke[address] [place]e Hemoglobin mass conc (Bld) 13.2 g/dL Normal 12.0-16.0 [facility] Comment on above: Performed By: #### C BC ####[facility] [address] Desiree IG # 0.04 10e3/ul Critically high 0.00-0.03 The [place] Comment on above: Performed By: #### C BC ####[facility] [address]ql[address] Desiree IG % 0.4 % Normal 0.0-0.5 [facility] Comment on above: Performed By: #### C BC ####[facility] [address] Desiree Lymphocytes 1.7 103/ul Normal 1.2-3.8 [facility] Comment on above: Performed By: #### C BC ####[facility] [address]ha Ramírez Lymphocytes/100 leukocytes 15.4 % Critically low 20.5-60.0 [facility] Comment on above: Performed By: #### C BC ####[facility] [address] [place] MANUAL DIFF REQ NO Normal [facility] Comment on above: Performed By: #### C BC ####[facility] [address] [place], [place] [address]Mfbkun Desiree MCH 29.5 pg Normal 26.7-34.0 [facility] Comment on above: Performed By: #### C BC ####[facility] [facility] X[address]ut[address] [place], [place] [address]Gqjynu Desiree MCHC mass conc (RBC) 34.0 g/dL Normal 29.9-35.2 [facility] Comment on above: Performed By: #### C BC ####[facility] Fm[address] [place] [phone] Desiree MCV 86.8 fL Normal 81.0-99.0 [facility] Comment on above: Performed By: #### C BC ####[facility] M[address] [place], [place] [address]Gerken Desiree Monocytes 0.4 103/ul Normal 0.3-0.8 [facility] Comment on above: Performed By: #### C BC ####[facility] V[address] [place], [place] [address]Gerken Desiree Monocytes/100 leukocytes 4.0 % Normal 1.7-12.0 [facility] Comment on above: Performed By: #### C BC ####[facility] Jonkq[address] [place], [place] [address]Gerken Desiree Neutrophils 8.5 103/ul Critically high 1.4-6.[address] [facility] Comment on above: Performed By: #### C BC ####[facility] [address] [place] [address]Kxynkt Desiree Neutrophils/100 WBC Auto (Bld) 79.4 % Critically high 43.0-75.0 [facility] Comment on above: Performed By: #### C BC ####[facility] Uv[address] [place], [place] [address]Yofwnj Desiree Platelet mean volume (PMV) 9.2 fL Critically low 9.5-13.5 [facility] Comment on above: Performed By: #### C BC ####[facility] Vmtkpnsznb9025 [place], [place] [address]Sycnbl Desiree Platelets 348 103/ul Normal 150-450 [facility] Comment on above: Performed By: #### C BC ####[facility] Dclholuzsr2233 [place], [place] [address]Bqsugs Desiree WBC (Leukocytes) 10.7 103/ul Normal 4.0-11.0 The [place] Comment on above: Performed By: #### C BC ####[facility] Emyvsewknx79[address] [place] [address]Gerken Desiree PROF CHEM 8 (BAS METB)on Anion gap 14.1 mmol/L Normal [facility] Comment on above: Performed By: #### B MP ####[facility] Br[address] [place], [place] [address]Gerken Desiree BUN/Creatinine Ratio 18.4 mg/mg Normal [facility] Comment on above: Performed By: #### B MP ####[facility] B[address] [place], [place] [address]Gerken Desiree Calcium 9.8 mg/dL Normal 8.4-10.2 [facility] Comment on above: Performed By: #### B MP ####[facility] [address] [place], [place] [address]Gerken Desiree Chloride 100 mmol/L Normal 98-107 [facility] Comment on above: Performed By: #### B MP ####[facility] Y[address] [place], [place] [address]Gerken Desiree CO2 28.0 mmol/L Normal 22.0-30.0 [facility] Comment on above: Performed By: #### B MP ####[facility] H[address]irs[address] [place], [place] [address]Gerken Desiree Creatinine 0.59 mg/dL Normal 0.52-1.04 [facility] Comment on above: Performed By: #### B MP ####[facility] X[address]ab[address] [place], [place] [address]Gerken Desiree eGFR (non-black) mL/min/{1.73_m2} Normal >=60 [facility] Comment on above: Performed By: #### B MP ####[facility] Gxodgfvkic7141 [address] Desiree Glucose mass conc 98 mg/dL Normal 74-106 [facility] Comment on above: Performed By: #### B MP ####[facility] Rwvwyzqram[address]3 [address] Desiree Potassium molar conc 4.2 mmol/L Normal 3.4-5.0 [facility] Comment on above: Performed By: #### B MP ####[facility] Oxnezgqsoc8312 [address] Desiree Sodium 138 mmol/L Normal 137-145 [facility] Comment on above: Performed By: #### B MP ####[facility] Jwiluxgnaw2386 [address] Desiree Urea nitrogen 11.0 mg/dL Normal 7.0-17.0 [facility] Comment on above: Performed By: #### B MP ####[facility] [address] [place] [address] Desiree PROTIMEon 04-10-2017 INR Coag RelTime (Bld) SEE BELOW Normal [facility] Comment on above: Result Comment: DEVON RED INR: 2.0 - 3.0 CONDITIONS NOT LISTED BELOW 2.5 - 3.5 FOR PROSTHETIC HEART VALVE REPLACEMENT 2.5 - 3.5 RECURRENT THROMBOSIS Performed By: #### P TT, PT ####[facility] Kvctidwufl[address] Desiree INR Coag RelTime (PPP) 1.07 {INR} Normal [facility] Comment on above: Performed By: #### P TT, PT ####[facility] [address] [place] [address] Desiree Prothrombin time (PT) Coag time (PPP) 11.1 s Normal 9.7-11.7 [facility] Comment on above: Performed By: #### P TT, PT ####[facility] [address] [place] [address] Desiree PT NORMAL PLEASE NOTE: NORMAL RANGE CHANGE 05-22-2014 DUE TO REAGENT LOT CHANGE Normal [facility] Comment on above: Performed By: #### P TT, PT ####[facility] Xclev[address]3 [place], [place] [address]JbnaftBrayden Ramírez PTTon 04-10-2017 aPTT 24.6 s Normal 22.1-30.2 [facility] Comment on above: Performed By: #### P TT, PT ####[facility] [address] [place], [place] [address]TyclhuBrayden Ramírez aPTT PLEASE NOTE: NORMAL RANGE CHANGE 07-29-2015 DUE TO REAGENT LOT CHANGE Normal [facility] Comment on above: Performed By: #### P TT, PT ####[facility] Ywxz[address] [place], [place] Dread Ramírez XR C-SPINE MIN 4 VIEWSon XR C-SPINE MIN 4 VIEWS [address] [place] [address] Patient: CAMPBELL JUAN Chung Exam Date: 04/10/2017DOB: 1995 Gender:F : DR LARS WARD Admission #: [id number] : DR ADI BOYD . Order #: [id number] HERE TO VIEW EXAM RADIOLOGY REPORT PROCEDURE: [...] Taylor M.D. on 04/10/2017 at 16:08 Normal [facility] XR CHEST 2 Von 04-10-2017 XR CHEST 2 V [address] [place] [address] Patient: JUAN CAMPBELL Exam Date: 04/10/2017DOB: 1995 Gender:F : DR ADI BOYD . Admission #: [id number] : DR MIKE ANDERS Order #: [id number] HERE TO VIEW EXAM RADIOLOGY REPORT PROCEDURE: [...] Taylor M.D. on 04/10/2017 at 16:04 Normal [facility] XR KUB 1 VIEWon 04-10-2017 XR KUB [address] [place] [address] Patient: JUAN CAMPBELL Exam Date: 04/10/2017DOB: 1995 Gender:F : DR MIKE ANDERS Admission #: [id number] : DR ADI BOYD . Order #: [id number] HERE TO VIEW EXAM RADIOLOGY REPORT PROCEDURE: [...] Taylor M.D. on 04/10/2017 at 11:49 Normal [facility] CBCon 03-13-2017 Erythrocyte distribution width Auto Ratio (RBC) 13.2 % Normal 11.5-15.0 [facility] Comment on above: Performed By: #### C BC, CMP ####[address] [phone] Erythrocytes (RBC) 4.11 10*6/uL Normal 3.90-5.20 [facility] Comment on above: Performed By: #### C BC, CMP ####[address] [place], [place] [phone] Erythrocytes (RBC) 0.00 10*6/uL Normal 0.00 [facility] Comment on above: Performed By: #### C BC, CMP ####[place] [address] [place], [place] [phone] Hematocrit (HCT) 37.9 % Normal 36.0-46.0 [facility] Comment on above: Performed By: #### C BC, CMP ####[address] [phone] Hemoglobin mass conc (Bld) 12.0 g/dL Normal 11.5-15.5 [facility] Comment on above: Performed By: #### C BC, CMP ####[place] [address] [place], [place] [phone] MCH 29.2 pG Normal 26.0-34.0 [facility] Comment on above: Performed By: #### C BC, CMP ####[address] [phone] MCHC mass conc (RBC) 31.7 g/dL Normal 30.5-36.0 [facility] Comment on above: Performed By: #### C BC, CMP ####[place] [address] [place], [place] [phone] MCV 92.2 fL Normal 80.0-100.0 [facility] Comment on above: Performed By: #### C BC, CMP ####[facility] [place], [place] [phone] Platelet mean volume (PMV) 9.6 fL Normal 9.0-12.7 [facility] Comment on above: Performed By: #### C TALISHA, CMP ####[facility] [place], [place] [phone] Platelets 338 10*3/uL Normal 150-400 [facility] Comment on above: Performed By: #### C TALISHA, CMP ####[facility] [place], [place] [phone] WBC (Leukocytes) 8.52 10*3/uL Normal 3.70-11.00 [facility] Comment on above: Performed By: #### C TALISHA, CMP ####[facility] [place], [place] [phone] Jamila 03-13-2017 JOCELYNE Office Visit (BILL) JUAN CAMPBELL ([id number]) 1995 FDate Time Provider Department03/13/17 10:20 AM [...] following:-CBC + AUTO DIFF-COMP METABOLIC PANEL-SED RATE UWUHMHLAUY-M-SVAECIHV PROTEIN (CRP)Haleigh Fonseca, SUZETTEeferring Provider: SELF [200]Allergies As of Date: 03/13/2017(No Known Allergies)Date Reviewed: 03/13/2017Reviewed by: Aysha May LPN - Fully AssessedReason for Visit: Follow Up [171]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] Other Visit Diagnoses:Pain in joint, multiple sites [M25.50] Joint stiffness [M25.60] Medication monitoring encounter [Z51.81]Order(s):CBC [SQCBC] Order #: [id number] FUTURE COMP METABOLIC PANEL [SQCMP] Order #: [id number] FUTUREPrescriptions as of 03/13/2017 Sig:X METHOTREXATE SODIUM [...] 20m .Follow-up and Disposition History RecordedEncounter Number: [id number] Status:Closed by HALEIGH FONSECA MD on 03/13/17 Normal [facility] Comp Metabolic Panelon 03-13 Alanine aminotransferase (ALT) 8 U/L Normal 7-38 [facility] Comment on above: Performed By: #### C TALISHA, CMP ####[facility] [place], [place] [phone] Albumin 4.0 g/dL Normal 3.9-4.9 [facility] Comment on above: Performed By: #### C TALISHA, CMP ####[facility] [address] [place], [place] [phone] Alkaline phosphatase (ALP) 54 U/L Normal 32-117 [facility] Comment on above: Performed By: #### C TALISHA, CMP ####[facility] [address] Ave[place]levelMaria [place] [phone] Anion gap 14 mmol/L Normal 9-18 [facility] Comment on above: Performed By: #### C BC, CMP ####[facility] [place] [phone] Aspartate aminotransferase (AST) 14 U/L Normal 13-35 [facility] Comment on above: Performed By: #### C BC, CMP ####[place] [address] [phone] Bilirubin (total) 0.4 mg/dL Normal 0.2-1.3 [facility] Comment on above: Performed By: #### C BC, CMP ####[place] [address] [address] [place] [phone] Calcium 9.2 mg/dL Normal 8.5-10.2 [facility] Comment on above: Performed By: #### C BC, CMP ####[facility] [place] [phone] Chloride 102 mmol/L Normal 97-105 [facility] Comment on above: Performed By: #### C BC, CMP ####[place] [address] [address] [place] [phone] CO2 23 mmol/L Normal 22-30 [facility] Comment on above: Performed By: #### C BC, CMP ####[facility] [place] [phone] Creatinine 0.66 mg/dL Normal 0.58-0.96 [facility] Comment on above: Performed By: #### C BC, CMP ####[facility] [place] [phone] eGFR (non-black) mL/min/{1.73_m2} Normal [facility] Comment on above: Performed By: #### C BC, CMP ####[facility] [place], [place] [phone] Result Comment: eGFR (Estimated GFR) Units of [...] Glucose mass conc 83 mg/dL Normal 74-99 [facility] Comment on above: Result Comment: The Stateless Diabetes Association (ADA) provides guidance for cutoff [...] Standards of Medical Care in Diabetes 2016, Stateless Diabetes Association. Diabetes Care. 2016.39(Suppl 1). Performed By: #### C BC, CMP ####[facility] [place], [place] [phone] Potassium molar conc 3.9 mmol/L Normal 3.7-5.1 [facility] Comment on above: Performed By: #### C BC, CMP ####[facility] [place], [place] [phone] Protein 6.1 g/dL Low 6.3-8.0 [facility] Comment on above: Performed By: #### C BC, CMP ####[facility] [place], [place] [phone] Sodium 139 mmol/L Normal 136-144 [facility] Comment on above: Performed By: #### C BC, CMP ####[facility] [address] [place], [place] [phone] Urea nitrogen 13 mg/dL Normal 7-21 [facility] Comment on above: Performed By: #### C BC, CMP ####[facility] [address] [place], [place] [phone] PROGRESSon 03-13-2017 PROGRESS HNO ID: [id number] thor: Haleigh Jackson: (none)Author Type: PhysicianType: Progress [...] to Rheum- evaluated by Dr Aguirre in [facility] and diangosed with JOSH. Started on methotrexate. Enbrel prescribedin March 2010. Combination worked great for years, stopped both meds [id number] as patient was in remission. Patient did [...] following:-CBC + AUTO DIFF-COMP METABOLIC PANEL-SED RATE WERWGRBJUS-C-LVLIVQXH PROTEIN (CRP)Haleigh Fonseca MD Normal [facility] OBSOLETEon 03-10-2017 OBSOLETE Refill (RHEUAV) JUAN CAMPBELL ([id number]) 1995 [facility] Time Provider Department03/10/17 HALEIGH FONSECA During your [...] Antibody, IgG ANDlt;20 Units ANDlt;15HLA B27 Negative NegativeChester Carlos Fonseca MD 03/13/2017 11:13 AM SignedThe following approved medication requests have been transmitted electronically.Signed Prescriptions Disp Refills methotrexate 2.5 mg tablet 24 tablet 3 Sig: Take 6 tabs po qwk LUIS: No Authorizing Provider: HALEIGH FONSECA MDAllergies As of Date: 03/10/2017(No Known [...] by HALEIGH FONSECA MD on 03/13/17 Normal [facility] Encounters Encounter Date Encounter Type Care Provider Facility Start: 10-03-2023 End: 10-04-2023 ambulatory LEONCIO LOZADA Not Available Start: 08-01-2023 End: 08-02-2023 ambulatory LEONCIO LOZADA Not Available Start: 07-12-2023 End: 07-13-2023 ambulatory LEONCIO LOZADA Not Available Start: 09-06-2017 End: 09-06-2017 Ambulatory HALEIGH FONSECA [facility] Start: 05-09-2017 End: 05-10-2017 Ambulatory Adi Boyd Facility:[facility] Start: 04-13-2017 End: 04-13-2017 Ambulatory ADI BOYD Facility: Start: 04-10-2017 End: 04-11-2017 Ambulatory ADI BOYD Facility:[facility] Start: 04-10-2017 End: 04-11-2017 Ambulatory MIKE ANDERS Facility:[facility] Start: 03-13-2017 End: 03-13-2017 Ambulatory HALEIGH Anguiano RAYMUNDO [facility] Start: 03-13-2017 End: 03-13-2017 Ambulatory HALEIGH Anguiano [facility] Payers Date Payer Category Payer Unknown [id number] 2017 Unknown 1995 Unknown [id number] 1995 Unknown [id number] 1995 Unknown [id number] 1958 Unknown [id number] Clinical Note 10-18-2021 Note Date & Type [...] Placenta Anterior Grade I Weight (g) by Setawlaqga16.1 % * (prior These measurements result in [...] period. Report reported and signed by Edwin Orpoeza on 10/19/2021 0733 [facility] Pie Topper Summary Purpose Family History No Family History [...] section and content) DATE CREATED AUTHOR 02/27/2018 [facility] DATE CREATED AUTHOR AUTHOR'S ORGANIZ ATION 02/28/2018 [facility] DATE CREATED AUTHOR AUTHOR'S ORGANIZ ATION 02/28/2018 [facility] DATE CREATED AUTHOR AUTHOR'S ORGANIZ ATION 03/28/2020 [facility] DATE CREATED AUTHOR AUTHOR'S ORGANIZ ATION 10/19/2021 [facility] DATE CREATED AUTHOR AUTHOR'S ORGANIZ ATION 10/08/2023 [facility] FOR RECORDS PERTAINING TO PATIENTS WHO ARE [...] BE BASED ON THE PRIMARY CLINICAL RECORDS. [facility] [employer] provides no warranty or guarantee of the accuracy or completeness of information in this document.
--- NOTE | 2023-11-13 14:02 | CM.DCFOLLOWU ---
11/12- 1st attempt. No answer
--- NOTE | 2023-11-15 14:49 | CM.DCFOLLOWU ---
Person spoke with: Pt's mother How are you feeling? She is good How is your pain? No pain Did you understand your discharge instructions? Yes Do you have any questions about your discharge instructions? No Were you given any prescriptions at discharge? Yes Were you able to get your prescriptions filled? Yes Do you understand how to take your medications as ordered? Yes Do you have any questions about your follow up appointment and do you plan to keep your follow up appointment? No already went to f/u appt Is there anything else that you would like to discuss? No Questions/Comments/Concerns/Other:
== END 2023-11-10 11:24 | disposition home or self-care (01) ==
LOC: ER 20:43 → MS 11-10 06:16 → ER 11-10 11:49 → MS 11-10 11:49
PROVIDERS: Physician Assistant; Registered Nurse; Admitting Provider Family Medicine; Emergency Provider Emergency Medicine; PCP Family Medicine; Visit Provider Family Medicine
DX: A41.51 Sepsis due to Escherichia coli [E. coli] (principal); N10 Acute pyelonephritis; N17.9 Acute kidney failure, unspecified; E87.6 Hypokalemia; D64.9 Anemia, unspecified; R11.2 Nausea with vomiting, unspecified; F41.9 Anxiety disorder, unspecified; I10 Essential (primary) hypertension; Z20.822 Contact with and (suspected) exposure to COVID-19; Z98.890 Other specified postprocedural states; Z79.899 Other long term (current) drug therapy
CPT/HCPCS: 36415; 76775; 80053; 81001; 83605; 84145; 84702; 85007; 85025; 85027; 87040; 87086; 87150; 87186; 87804; 87811; 93005; 96361; 96365; 96366; 96375; 96376; 99285; G0378